=== PATIENT | female | born 1940 | race Caucasian/White ===

== ENCOUNTER 2016-02-15 22:56 | Inpatient (IN) | payer OTHER ==
[~2016-02-15] VITALS: Ht 162.6 cm; Wt 115.1 kg
[~2016-02-15 22:56] MED LIST: ALENDRONATE SOD70 MG PO; ALEVE220 MG PO; ASPIRIN81 M1 PO; BETHANECHOL CHL25 MG PO; CALCIUM 500 +1 EACH PO; CALCIUM 600 +1 EA15 PO; CALCIUM 600+D31 EACH PO; CIPRO500 MG PO; CITALOPRAM HBR40 M1 PO; CITALOPRAM HBR40 MG PO; DICYCLOMINE HCL20 MG PO; DILANTIN100 MG; DILANTIN100 MG PO; DITROPAN5 MG PO; ENDOCET 7.5-321 EACH PO; FLAGYL500 MG PO; FOSAMAX70 M1 PO; KEPPRA1000 MG PO; KEPPRA750 MG PO; KETOCONAZOLE60 GM TP; LAMICTAL25 MG PO; LAMOTRIGINE100 MG PO; LEVETIRACETAM750 MG PO; LITE COAT ASPI325 M1 PO; OMEPRAZOLE20 MG PO; OS-CAL 500+D T1 EAC1 PO; OXCARBAZEPINE300 MG PO; OYSTER CALCIUM500 MG PO; PERCOCET 5/31 TABLET PO; PHENYTOIN SODI100 M1 PO; PRILOSEC20 MG PO; RANITIDINE HCL150 MG PO; SIMVASTATIN40 M1 PO; SIMVASTATIN40 MG PO; SODIUM CHLORIDE1 G1 PO; STOOL SOFTENER100 MG PO; TOPIRAMATE25 MG PO; TRILEPTAL300 MG PO; ZOFRAN4 MG PO
[2016-02-15 23:56] LABS: HEMATOCRIT 38.6 % (36.0-46.0); MCH 29.9 PG (29.0-34.0); MCHC 33.4 G/DL (30.0-36.0); MCV 89.6 FL (83-99); MEAN PLAT.VOLUME 9.5 uM^3 (9.5-12.4); PLATELET COUNT 242 K/uL (156-360); RBC DIS.WIDTH-CV 13.3 % (11.8-14.6); RBC DIS.WIDTH-SD 42.9 % (39-53); RED BLOOD COUNT 4.31 M/uL (3.80-5.20); WHITE BLOOD COUNT 12.2 K/uL (4.1-10.2)
[2016-02-16 00:09] LABS: CHLORIDE 106 mEq/L (99-109); POTASSIUM 4.1 mEq/L (3.7-5.4); SODIUM 137 mEq/L (136-147)
[2016-02-16 00:11] LABS: GLUCOSE 121 mg/dL (70-99)
[2016-02-16 00:12] LABS: ANION GAP 10 MEQ/L (2-14)
[2016-02-16 00:13] LABS: TOTAL BILIRUBIN 0.5 mg/dL (0.0-1.0)
[2016-02-16 00:15] LABS: ALKALINE PHOSPHATASE 76 IU/L (3-129); GFR ESTIMATE (CALCULATED) 51 mL/min/
[2016-02-16 00:16] LABS: UREA NITROGEN (BUN) 21 mg/dL (9-23)
[2016-02-16 00:17] LABS: DIRECT BILIRUBIN 0.2 mg/dL (0.0-0.3)
[2016-02-16 00:18] LABS: LIPASE 20 U/L (1.0-51.0)
[2016-02-16 00:40] LABS: TROP-I INTERPRETATION NEGATIVE; TROPONIN-I < 0.01 ng/mL (0.0-0.30)
[2016-02-16] MEDS ORDERED: ATORVASTATIN CA20 MG PO (01:26)
[2016-02-16] MEDS ORDERED: LACTAID9000 UNIT PO (01:26)
[2016-02-16] MEDS ORDERED: TEMAZEPAM15 MG PO (01:27)
[2016-02-16] MEDS ORDERED: MIRALAX255 GM PO (01:27)
[2016-02-16] MEDS ORDERED: ALPRAZOLAM0.25 M2 PO (01:27)
[2016-02-16] MEDS ORDERED: ROBITUSSIN DM118 ML PO (01:27)
[2016-02-16 05:47] VITALS: BP 109/53
[2016-02-16 07:13] LABS: Estimated Average Glucose 137 mg/dL (70-123); HEMOGLOBIN A1c (GLYCOHEMOGLOB) 6.4 % HGB (Below 5.7)
[2016-02-16 07:16] LABS: HDL CHOLESTEROL 53 MG/DL (Desirable>=50); LDL CHOLESTEROL 52 mg/dL (Desirable<100); NON-HDL CHOLESTEROL 62 mg/dL (Desirable<160); TOTAL CHOLESTEROL 115 mg/dL (Desirable<200); TRIGLYCERIDES 48 MG/DL (Normal: <150)
[2016-02-16 08:53] VITALS: BP 95/50
[2016-02-16 13:02] VITALS: BP 92/56
[2016-02-16 14:00] LABS: TROP-I INTERPRETATION NEGATIVE; TROPONIN-I < 0.01 ng/mL (0.0-0.30)
[2016-02-16 17:24] VITALS: BP 85/48
[2016-02-16 20:38] VITALS: BP 116/55
[2016-02-17] VITALS: BP 129/66
[2016-02-17 04:30] VITALS: BP 129/67
[2016-02-17 08:30] VITALS: BP 136/65
[2016-02-17 12:45] VITALS: BP 129/65
[2016-02-17 16:56] VITALS: BP 114/61
[2016-02-17 21:27] VITALS: BP 105/57
[2016-02-18 07:12] LABS: HEMATOCRIT 35.5 % (36.0-46.0); MCH 30.3 PG (29.0-34.0); MCHC 33.2 G/DL (30.0-36.0); MCV 91.3 FL (83-99); MEAN PLAT.VOLUME 9.9 uM^3 (9.5-12.4); PLATELET COUNT 270 K/uL (156-360); RBC DIS.WIDTH-CV 13.4 % (11.8-14.6); RBC DIS.WIDTH-SD 44.4 % (39-53); RED BLOOD COUNT 3.89 M/uL (3.80-5.20)
[2016-02-18 07:15] LABS: WHITE BLOOD COUNT 8.5 K/uL (4.1-10.2)
[2016-02-18 08:00] VITALS: BP 122/65
[2016-02-18 12:55] VITALS: BP 100/51
[2016-02-18 20:48] VITALS: BP 102/54
[2016-02-19 00:36] VITALS: BP 115/59
[2016-02-19 04:38] VITALS: BP 119/58
[2016-02-19 08:37] VITALS: BP 129/67
[2016-02-19 13:00] VITALS: BP 112/57
[2016-02-19 20:21] VITALS: BP 102/53
[2016-02-20] VITALS (7 sets, daily range): BP systolic 97–123; BP diastolic 54–64
[2016-02-20] MEDS ORDERED: LEVETIRACETAM750 MG PO (07:41)
[2016-02-21 04:16] VITALS: BP 109/60
[2016-02-21 07:38] VITALS: BP 101/54
== END 2016-02-21 11:40 | DRG 69 ==
LOC: EME → EDBD 22:56 → EDOF 02-16 02:30 → 5WEST 02-16 04:16
PROVIDERS: Emergency Medicine; Family Medicine; Nurse Practitioner Adult Health
DX: G45.9 Transient cerebral ischemic attack, unspecified (principal); R29.810 Facial weakness; J96.11 Chronic respiratory failure with hypoxia; R07.89 Other chest pain; J98.11 Atelectasis; R55 Syncope and collapse; I95.9 Hypotension, unspecified; E86.1 Hypovolemia; I69.351 Hemiplegia and hemiparesis following cerebral infarction affecting right dominant side; G40.909 Epilepsy, unspecified, not intractable, without status epilepticus; G47.33 Obstructive sleep apnea (adult) (pediatric); R26.2 Difficulty in walking, not elsewhere classified; J44.9 Chronic obstructive pulmonary disease, unspecified; E78.5 Hyperlipidemia, unspecified; E03.9 Hypothyroidism, unspecified; I10 Essential (primary) hypertension; E66.9 Obesity, unspecified; R33.9 Retention of urine, unspecified; Z68.41 Body mass index [BMI] 40.0-44.9, adult; G93.89 Other specified disorders of brain; F32.9 Major depressive disorder, single episode, unspecified; K21.9 Gastro-esophageal reflux disease without esophagitis; Z99.3 Dependence on wheelchair; Z86.718 Personal history of other venous thrombosis and embolism; Z87.891 Personal history of nicotine dependence
CPT/HCPCS: 70450; 70551; 71010; 71275; 80048; 80061; 80076; 80164; 81003; 83036; 83690; 84484; 85027; 93005; 93306; 93880; 94640; 94640 76; 94799; 95819; 97530 GP; 99202; 99281; 99285; G8978 GP CM; G8979 GP CK; G8980 GP CM; G8987 GO CM; G8988 GO CK; G8989 GO CM; J7030; J7040

== ENCOUNTER 2016-03-28 12:37 | Inpatient (IN) | payer OTHER ==
[~2016-03-28] VITALS: Ht 162.6 cm; Wt 119.0 kg
[~2016-03-28 12:37] MED LIST changes: +ALPRAZOLAM0.25 M2 PO; +ATORVASTATIN CA20 MG PO; +LACTAID9000 UNIT PO; +MIRALAX255 GM PO; +ROBITUSSIN DM118 ML PO; +TEMAZEPAM15 MG PO
[2016-03-28 17:01] LABS: HEMATOCRIT 38.4 % (36.0-46.0); MCH 29.9 PG (29.0-34.0); MCHC 32.6 G/DL (30.0-36.0); MCV 91.9 FL (83-99); MEAN PLAT.VOLUME 9.3 uM^3 (9.5-12.4); PLATELET COUNT 305 K/uL (156-360); RBC DIS.WIDTH-CV 13.4 % (11.8-14.6); RED BLOOD COUNT 4.18 M/uL (3.80-5.20)
[2016-03-28 17:02] LABS: WHITE BLOOD COUNT 11.7 K/uL (4.1-10.2)
[2016-03-28 17:10] LABS: CHLORIDE 108 mEq/L (99-109); POTASSIUM 5.4 mEq/L (3.7-5.4); SODIUM 142 mEq/L (136-147)
[2016-03-28 17:11] LABS: GLUCOSE 78 mg/dL (70-99)
[2016-03-28 17:13] LABS: ANION GAP 9 MEQ/L (2-14)
[2016-03-28 17:15] LABS: GFR ESTIMATE (CALCULATED) 57 mL/min/
[2016-03-28 17:16] LABS: UREA NITROGEN (BUN) 19 mg/dL (9-23)
[2016-03-28] MEDS ORDERED: KEPPRA750 MG PO (18:40)
[2016-03-28] MEDS ORDERED: TRILEPTAL300 MG PO (18:41)
[2016-03-28] MEDS ORDERED: INCRUSE ELLI62.5 MCG IH (18:42)
[2016-03-28] MEDS ORDERED: ADVAIR HFA120 INHALA IH (18:42)
[2016-03-28] MEDS ORDERED: LOTRISONE15 GM TP (18:43)
[2016-03-28] MEDS ORDERED: LIPITOR20 MG PO (19:05)
[2016-03-28] MEDS ORDERED: XANAX0.25 MG PO (19:05)
[2016-03-28] MEDS ORDERED: KEPPRA500 MG PO (19:06)
[2016-03-29] VITALS (7 sets, daily range): BP systolic 90–110; BP diastolic 50–58
[2016-03-29 06:14] LABS: HEMATOCRIT 34.2 % (36.0-46.0); MCH 29.4 PG (29.0-34.0); MCHC 31.3 G/DL (30.0-36.0); MEAN PLAT.VOLUME 9.8 uM^3 (9.5-12.4); PLATELET COUNT 294 K/uL (156-360); RBC DIS.WIDTH-CV 13.8 % (11.8-14.6); RBC DIS.WIDTH-SD 47.4 % (39-53); RED BLOOD COUNT 3.64 M/uL (3.80-5.20); WHITE BLOOD COUNT 8.8 K/uL (4.1-10.2)
[2016-03-29 06:21] LABS: METH RESISTANT S AUREUS PCR NEGATIVE (NEGATIVE)
[2016-03-29 06:24] LABS: PROBE CHECK PASS; SPECIMEN PROCESSING CONTROL PASS
[2016-03-29 06:51] LABS: ALKALINE PHOSPHATASE 49 IU/L (3-129); ANION GAP 6 MEQ/L (2-14); CHLORIDE 108 MEQ/L (99-109); GFR ESTIMATE (CALCULATED) 51 mL/min/; GLUCOSE 95 mg/dL (70-99); POTASSIUM 4.8 MEQ/L (3.7-5.4); SAMPLE HEMOLYSIS CHECK 0; SAMPLE ICTERIC CHECK 0; SAMPLE LIPEMIA CHECK 0; SODIUM 141 MEQ/L (136-147); TOTAL BILIRUBIN 0.3 MG/DL (0.0-1.0); UREA NITROGEN (BUN) 22 mg/dL (9-23)
[2016-03-29 11:07] LABS: BILIRUBIN NEGATIVE; BLOOD NEGATIVE; COLOR YELLOW ((YELLOW)); GLUCOSE (STRIP) NEGATIVE; KETONES NEGATIVE; LEUKOCYTES NEGATIVE; NITRITE NEGATIVE; PROTEIN (STRIP) NEGATIVE; SPECIFIC GRAVITY 1.021 (1.000-1.030); UROBILINOGEN 0.2 MG/DL (0.2-1.0)
[2016-03-29 11:10] LABS: ADD MIUA? NO; UCUL ADDED? NO
[2016-03-30 03:46] VITALS: BP 123/57
[2016-03-30 07:56] VITALS: BP 100/68
[2016-03-30 15:26] VITALS: BP 125/69
[2016-03-30 19:47] VITALS: BP 134/62
[2016-03-30 23:40] VITALS: BP 109/53
[2016-03-31 03:31] VITALS: BP 109/53
[2016-03-31 07:40] VITALS: BP 112/56
[2016-03-31 07:40] LABS: EOSINOPHIL (%) 3.3 % (0-5); EOSINOPHIL COUNT 0.3 K/uL (0-0.3); HEMATOCRIT 30.9 % (36.0-46.0); IMMATURE GRANULOCYTE (%) 0.1 % (0.0-0.7); LYMPHOCYTE COUNT 1.1 K/uL (1.0-2.8); MCH 29.9 PG (29.0-34.0); MCHC 32.4 G/DL (30.0-36.0); MCV 92.2 FL (83-99); MEAN PLAT.VOLUME 9.5 uM^3 (9.5-12.4); MONOCYTE (%) 10.7 % (3-12); MONOCYTE COUNT 0.8 K/uL (0-0.8); NEUTROPHIL (%) 71.6 % (45-76); NEUTROPHIL COUNT 5.4 K/uL (1.8-6.4); PLATELET COUNT 219 K/uL (156-360); RBC DIS.WIDTH-CV 13.6 % (11.8-14.6); RBC DIS.WIDTH-SD 45.9 % (39-53); RED BLOOD COUNT 3.35 M/uL (3.80-5.20); WHITE BLOOD COUNT 7.6 K/uL (4.1-10.2)
[2016-03-31 08:01] LABS: ANION GAP 5 MEQ/L (2-14); CHLORIDE 103 MEQ/L (99-109); GFR ESTIMATE (CALCULATED) 51 mL/min/; GLUCOSE 84 mg/dL (70-99); POTASSIUM 4.5 MEQ/L (3.7-5.4); SAMPLE HEMOLYSIS CHECK 0; SAMPLE ICTERIC CHECK 0; SAMPLE LIPEMIA CHECK 0; SODIUM 138 MEQ/L (136-147); UREA NITROGEN (BUN) 19 mg/dL (9-23)
[2016-03-31 12:19] VITALS: BP 103/57
[2016-03-31 15:29] VITALS: BP 105/58
[2016-03-31 23:23] VITALS: BP 112/56
[2016-04-01 08:30] VITALS: BP 123/58
[2016-04-01 16:30] VITALS: BP 121/55
[2016-04-01 23:56] VITALS: BP 114/56
[2016-04-02 08:30] VITALS: BP 103/52
[2016-04-02 10:07] LABS: BASE EXCESS 4.6 mEq/L (-3 to +3); BICARBONATE 28.3 mEq/L (22-26); CARBOXY HGB 2.5 % (0-5); METHEMOGLOBIN 1.6 % (0-1.5); PCO2 38 mm Hg (35-45); PO2 55 mm Hg (80-100); pH 7.48 (7.35-7.45)
[2016-04-02 10:08] LABS: COMMENTS - BLOOD GASES A+C+; DEVICE NC; O2 FLOW 2 L/MIN; SITE LR; TOTAL RESP RATE 18 resp/min
[2016-04-02 10:57] LABS: HEMATOCRIT 30.8 % (36.0-46.0); MCH 28.7 PG (29.0-34.0); MCHC 31.8 G/DL (30.0-36.0); MCV 90.1 FL (83-99); MEAN PLAT.VOLUME 9.7 uM^3 (9.5-12.4); PLATELET COUNT 252 K/uL (156-360); RBC DIS.WIDTH-CV 13.9 % (11.8-14.6); RBC DIS.WIDTH-SD 45.6 % (39-53); RED BLOOD COUNT 3.42 M/uL (3.80-5.20); WHITE BLOOD COUNT 8.2 K/uL (4.1-10.2)
[2016-04-02 11:14] LABS: ANION GAP 8 MEQ/L (2-14); CHLORIDE 100 MEQ/L (99-109); GFR ESTIMATE (CALCULATED) > 59 mL/min/; GLUCOSE 103 mg/dL (70-99); POTASSIUM 4.6 MEQ/L (3.7-5.4); SAMPLE HEMOLYSIS CHECK 0; SAMPLE ICTERIC CHECK 0; SAMPLE LIPEMIA CHECK 0; SODIUM 135 MEQ/L (136-147); UREA NITROGEN (BUN) 18 mg/dL (9-23)
[2016-04-02 16:30] VITALS: BP 102/54
[2016-04-03 00:20] VITALS: BP 106/52
[2016-04-03 07:40] VITALS: BP 106/53
[2016-04-03] MEDS ORDERED: CLEOCIN150 MG PO (09:42)
[2016-04-03] MEDS ORDERED: TAMSULOSIN HCL0.4 MG PO (09:42)
[2016-04-03] MEDS ORDERED: TORADOL10 MG PO (09:43)
[2016-04-03] MEDS ORDERED: KEPPRA1000 MG PO (09:55)
[2016-04-03] MEDS ORDERED: PROBIOTIC1 EAC7 PO (09:57)
[2016-04-03] MEDS ORDERED: TRAMADOL HCL50 MG PO (09:59)
[2016-04-03] MEDS ORDERED: ENDOCET 5-3251 EACH PO (09:59)
== END 2016-04-03 12:55 | DRG 563 ==
LOC: EME → EXP 12:37 → EDBD 12:37 → EME 12:37 → EDOF 21:48 → 3EAST 23:08
PROVIDERS: Emergency Medicine; Hospitalist; Internal Medicine
DX: S82.851A Displaced trimalleolar fracture of right lower leg, initial encounter for closed fracture (principal); J96.11 Chronic respiratory failure with hypoxia; G93.89 Other specified disorders of brain; I69.351 Hemiplegia and hemiparesis following cerebral infarction affecting right dominant side; L03.115 Cellulitis of right lower limb; Z68.42 Body mass index [BMI] 45.0-49.9, adult; S82.831A Other fracture of upper and lower end of right fibula, initial encounter for closed fracture; G40.909 Epilepsy, unspecified, not intractable, without status epilepticus; R33.9 Retention of urine, unspecified; E66.9 Obesity, unspecified; I10 Essential (primary) hypertension; J98.11 Atelectasis; G47.30 Sleep apnea, unspecified; I69.398 Other sequelae of cerebral infarction; D72.829 Elevated white blood cell count, unspecified; J44.9 Chronic obstructive pulmonary disease, unspecified; F32.9 Major depressive disorder, single episode, unspecified; Z87.891 Personal history of nicotine dependence; W18.30XA Fall on same level, unspecified, initial encounter; Y92.018 Other place in single-family (private) house as the place of occurrence of the external cause
CPT/HCPCS: 36600; 70450; 71010; 72125; 73560; 73564; 73590; 73610; 80048; 80053; 81003; 82803; 85025; 85027; 86850; 86900; 86901; 87641; 94640; 94640 76; 94760; 94799; 97530 GP; 99202; 99281; 99285; G0378; J0690; J1170; J1650; J1885; J2405; J3010; J7030; J7050; J7120

== ENCOUNTER 2016-04-11 09:22 | Inpatient (IN) | payer OTHER ==
[~2016-04-11] VITALS: Ht 162.6 cm; Wt 112.3 kg
[~2016-04-11 09:22] MED LIST changes: +ADVAIR HFA120 INHALA IH; +CLEOCIN150 MG PO; +ENDOCET 5-3251 EACH PO; +INCRUSE ELLI62.5 MCG IH; +KEPPRA500 MG PO; +LIPITOR20 MG PO; +LOTRISONE15 GM TP; +PROBIOTIC1 EAC7 PO; +TAMSULOSIN HCL0.4 MG PO; +TORADOL10 MG PO; +TRAMADOL HCL50 MG PO; +XANAX0.25 MG PO
[2016-04-11 10:46] LABS: D-DIMER ELISA > 4.00 mg/L FEU (< 0.57)
[2016-04-11 11:53] LABS: HEMATOCRIT 35.4 % (36.0-46.0); MCH 29.7 PG (29.0-34.0); MCHC 34.5 G/DL (30.0-36.0); MCV 86.1 FL (83-99); MEAN PLAT.VOLUME 8.8 uM^3 (9.5-12.4); RBC DIS.WIDTH-CV 12.9 % (11.8-14.6); RBC DIS.WIDTH-SD 39.6 % (39-53); WHITE BLOOD COUNT 10.1 K/uL (4.1-10.2)
[2016-04-11 12:00] LABS: CREATININE 0.8 mg/dL (0.6-1.3); POTASSIUM 4.6 mEq/L (3.7-5.4)
[2016-04-11 12:12] LABS: TROP-I INTERPRETATION NEGATIVE; TROPONIN-I < 0.01 ng/mL (0.0-0.30)
[2016-04-11 12:34] LABS: ANION GAP 8 MEQ/L (2-14); CHLORIDE 91 MEQ/L (99-109); GFR ESTIMATE (CALCULATED) > 59 mL/min/; GLUCOSE 88 mg/dL (70-99); POTASSIUM 4.8 MEQ/L (3.7-5.4); SAMPLE HEMOLYSIS CHECK 0; SAMPLE ICTERIC CHECK 0; SAMPLE LIPEMIA CHECK 0; SODIUM 122 MEQ/L (136-147); UREA NITROGEN (BUN) 14 mg/dL (9-23)
[2016-04-11 13:07] LABS: PLATELET COUNT 475 K/uL (156-360); RED BLOOD COUNT 4.11 M/uL (3.80-5.20)
[2016-04-11] MEDS ORDERED: NYSTATIN60 GM TP (15:56)
[2016-04-11] MEDS ORDERED: OMEPRAZOLE20 M2 PO (15:57)
[2016-04-11] MEDS ORDERED: PROBIOTIC FORM1 EAC1 PO (16:01)
[2016-04-11] MEDS ORDERED: [UNRECOGNIZED DRUG - REMARK] (16:02)
[2016-04-11] MEDS ORDERED: DULCOLAX10 MG PR (16:04)
[2016-04-11] MEDS ORDERED: MILK OF MAGN PO (16:05)
[2016-04-11] MEDS ORDERED: MIRALAX255 GM PO (16:05)
[2016-04-11 19:42] VITALS: BP 124/65
[2016-04-11 19:59] VITALS: BP 124/64
[2016-04-11 23:57] VITALS: BP 120/62
[2016-04-12 03:51] VITALS: BP 143/72
[2016-04-12 07:20] LABS: HEMATOCRIT 32.1 % (36.0-46.0); MCH 28.3 PG (29.0-34.0); MCV 85.8 FL (83-99); MEAN PLAT.VOLUME 8.9 uM^3 (9.5-12.4); PLATELET COUNT 471 K/uL (156-360); RBC DIS.WIDTH-CV 13.5 % (11.8-14.6); RBC DIS.WIDTH-SD 41.9 % (39-53); RED BLOOD COUNT 3.74 M/uL (3.80-5.20); WHITE BLOOD COUNT 7.3 K/uL (4.1-10.2)
[2016-04-12 07:28] VITALS: BP 144/67
[2016-04-12 07:46] LABS: ANION GAP 9 MEQ/L (2-14); CHLORIDE 95 MEQ/L (99-109); GFR ESTIMATE (CALCULATED) > 59 mL/min/; GLUCOSE 81 mg/dL (70-99); POTASSIUM 4.4 MEQ/L (3.7-5.4); SAMPLE HEMOLYSIS CHECK 0; SAMPLE ICTERIC CHECK 0; SAMPLE LIPEMIA CHECK 0; SODIUM 127 MEQ/L (136-147); UREA NITROGEN (BUN) 12 mg/dL (9-23)
[2016-04-12 11:03] VITALS: BP 120/59
[2016-04-12 15:00] VITALS: BP 118/63
[2016-04-12 17:42] LABS: ANION GAP 7 MEQ/L (2-14); CHLORIDE 93 MEQ/L (99-109); GFR ESTIMATE (CALCULATED) > 59 mL/min/; GLUCOSE 88 mg/dL (70-99); POTASSIUM 4.5 MEQ/L (3.7-5.4); SAMPLE HEMOLYSIS CHECK 0; SAMPLE ICTERIC CHECK 0; SAMPLE LIPEMIA CHECK 0; SODIUM 124 MEQ/L (136-147); UREA NITROGEN (BUN) 13 mg/dL (9-23)
[2016-04-12 19:17] VITALS: BP 108/57
[2016-04-13 00:02] VITALS: BP 135/63
[2016-04-13 03:44] VITALS: BP 126/55
[2016-04-13 07:30] VITALS: BP 143/69
[2016-04-13 09:28] LABS: HEMATOCRIT 34.4 % (36.0-46.0); MCH 28.5 PG (29.0-34.0); MCHC 32.6 G/DL (30.0-36.0); MCV 87.5 FL (83-99); MEAN PLAT.VOLUME 8.8 uM^3 (9.5-12.4); PLATELET COUNT 481 K/uL (156-360); RBC DIS.WIDTH-CV 13.5 % (11.8-14.6); RBC DIS.WIDTH-SD 43.1 % (39-53); RED BLOOD COUNT 3.93 M/uL (3.80-5.20); WHITE BLOOD COUNT 7.1 K/uL (4.1-10.2)
[2016-04-13 09:56] LABS: ANION GAP 5 MEQ/L (2-14); CHLORIDE 94 MEQ/L (99-109); GFR ESTIMATE (CALCULATED) > 59 mL/min/; GLUCOSE 132 mg/dL (70-99); POTASSIUM 4.2 MEQ/L (3.7-5.4); SAMPLE HEMOLYSIS CHECK 0; SAMPLE ICTERIC CHECK 0; SAMPLE LIPEMIA CHECK 0; SODIUM 124 MEQ/L (136-147); UREA NITROGEN (BUN) 13 mg/dL (9-23)
[2016-04-13 11:05] VITALS: BP 128/71
[2016-04-13 15:20] VITALS: BP 115/52
[2016-04-13 19:35] VITALS: BP 109/61
[2016-04-13 20:27] LABS: ANION GAP 8 MEQ/L (2-14); CHLORIDE 95 MEQ/L (99-109); GFR ESTIMATE (CALCULATED) > 59 mL/min/; POTASSIUM 4.5 MEQ/L (3.7-5.4); SAMPLE HEMOLYSIS CHECK 0; SAMPLE ICTERIC CHECK 0; SAMPLE LIPEMIA CHECK 0; SODIUM 127 MEQ/L (136-147); UREA NITROGEN (BUN) 14 mg/dL (9-23)
[2016-04-13 20:32] LABS: GLUCOSE 93 mg/dL (70-99)
[2016-04-14] VITALS: BP 118/58
[2016-04-14 04:00] VITALS: BP 155/77
[2016-04-14 07:33] LABS: ANION GAP 6 MEQ/L (2-14); CHLORIDE 98 MEQ/L (99-109); GFR ESTIMATE (CALCULATED) > 59 mL/min/; GLUCOSE 86 mg/dL (70-99); POTASSIUM 4.5 MEQ/L (3.7-5.4); SAMPLE HEMOLYSIS CHECK 0; SAMPLE ICTERIC CHECK 0; SAMPLE LIPEMIA CHECK 0; SODIUM 129 MEQ/L (136-147); UREA NITROGEN (BUN) 12 mg/dL (9-23)
[2016-04-14 07:51] VITALS: BP 113/62
[2016-04-14 10:18] LABS: ADD MIUA? YES; BILIRUBIN NEGATIVE; BLOOD MODERATE; COLOR AMBER ((YELLOW)); GLUCOSE (STRIP) NEGATIVE; KETONES NEGATIVE; LEUKOCYTES LARGE; NITRITE NEGATIVE; PROTEIN (STRIP) 30; SPECIFIC GRAVITY 1.005 (1.000-1.030); UROBILINOGEN 0.2 MG/DL (0.2-1.0)
[2016-04-14 11:00] LABS: BACTERIA 3+ /HPF; BUDDING YEAST 4+; EPITHELIAL CELLS 2+ /HPF; MUCUS NONE SEEN /LPF; RED BLOOD CELLS TNTC /HPF (0-5); UCUL ADDED? YES; WHITE BLOOD CELLS TNTC /HPF (0-5); WHITE BLOOD CELLS CLUMP MANY /HPF (0-5)
[2016-04-14 17:01] VITALS: BP 126/63
[2016-04-14 23:38] VITALS: BP 145/62
[2016-04-15 06:48] LABS: ANION GAP 7 MEQ/L (2-14); CHLORIDE 98 MEQ/L (99-109); GFR ESTIMATE (CALCULATED) > 59 mL/min/; GLUCOSE 83 mg/dL (70-99); POTASSIUM 4.5 MEQ/L (3.7-5.4); SAMPLE HEMOLYSIS CHECK 0; SAMPLE ICTERIC CHECK 0; SAMPLE LIPEMIA CHECK 0; SODIUM 131 MEQ/L (136-147); UREA NITROGEN (BUN) 15 mg/dL (9-23)
[2016-04-15 07:39] VITALS: BP 130/62
[2016-04-15] MEDS ORDERED: TAMSULOSIN HCL0.4 MG PO (13:10)
[2016-04-15] MEDS ORDERED: LEVETIRACETAM500 MG PO (13:11)
[2016-04-15] MEDS ORDERED: SPIRIVA RESPIMAT4 GM IH (13:11)
[2016-04-15] MEDS ORDERED: LEVETIRACETAM250 MG PO (13:12)
[2016-04-15] MEDS ORDERED: ADVAIR HFA120 INHALA IH (13:12)
[2016-04-15] MEDS ORDERED: SODIUM CHLORIDE1 G1 PO (13:12)
== END 2016-04-15 15:37 | DRG 641 ==
LOC: EME → EDBD 09:22 → EDOF 16:20 → 5SOUTH 16:20
PROVIDERS: Emergency Medicine; Hospitalist; Internal Medicine; Internal Medicine Nephrology; Physician Assistant
DX: E87.1 Hypo-osmolality and hyponatremia (principal); F05 Delirium due to known physiological condition; J98.11 Atelectasis; J90 Pleural effusion, not elsewhere classified; J96.11 Chronic respiratory failure with hypoxia; Z68.41 Body mass index [BMI] 40.0-44.9, adult; I69.351 Hemiplegia and hemiparesis following cerebral infarction affecting right dominant side; F33.9 Major depressive disorder, recurrent, unspecified; S82.841D Displaced bimalleolar fracture of right lower leg, subsequent encounter for closed fracture with routine healing; G40.909 Epilepsy, unspecified, not intractable, without status epilepticus; G47.30 Sleep apnea, unspecified; E78.5 Hyperlipidemia, unspecified; J44.9 Chronic obstructive pulmonary disease, unspecified; I25.10 Atherosclerotic heart disease of native coronary artery without angina pectoris; E66.01 Morbid (severe) obesity due to excess calories; E89.0 Postprocedural hypothyroidism; R32 Unspecified urinary incontinence; Z87.891 Personal history of nicotine dependence; Z88.5 Allergy status to narcotic agent; Z99.89 Dependence on other enabling machines and devices; Z88.1 Allergy status to other antibiotic agents
CPT/HCPCS: 71275; 73610; 80047; 80048; 80069; 81003; 83605; 83930; 83935; 84300; 84443; 84484; 85027; 85379; 87077; 87086; 87186; 93005; 94640; 94640 76; 94799; 99281; 99285; J1644; J1953; J2405; J3010; J7030; J7050

== ENCOUNTER 2016-06-26 17:12 | Emergency (ER) | payer OTHER ==
[~2016-06-26] VITALS: Ht 162.6 cm; Wt 110.5 kg
[~2016-06-26 17:12] MED LIST changes: +DULCOLAX10 MG PR; +LEVETIRACETAM250 MG PO; +LEVETIRACETAM500 MG PO; +MILK OF MAGN PO; +NYSTATIN60 GM TP; +OMEPRAZOLE20 M2 PO; +PROBIOTIC FORM1 EAC1 PO; +SPIRIVA RESPIMAT4 GM IH; +[UNRECOGNIZED DRUG - REMARK]
[2016-06-26 20:02] VITALS: BP 136/78
== END 2016-06-26 20:19 ==
LOC: EME 17:12
DX: F41.9 Anxiety disorder, unspecified (principal); F43.20 Adjustment disorder, unspecified; I69.351 Hemiplegia and hemiparesis following cerebral infarction affecting right dominant side; J44.9 Chronic obstructive pulmonary disease, unspecified; I10 Essential (primary) hypertension; Z88.1 Allergy status to other antibiotic agents; Z88.8 Allergy status to other drugs, medicaments and biological substances
CPT/HCPCS: 99281; 99282

== ENCOUNTER → 2016-07-17 | Outpatient (CLI) | payer OTHER | LOC: NUC 10:06 | DX: R07.9 Chest pain, unspecified (principal) | CPT/HCPCS: 78452; 93017; A9500; J2785 ==

== ENCOUNTER 2016-08-12 22:44 | Inpatient (IN) | payer OTHER ==
[~2016-08-12] VITALS: Ht 162.6 cm; Wt 105.0 kg
[2016-08-12 23:51] LABS: BASOPHIL COUNT 0.1 K/uL (0-0.1); EOSINOPHIL (%) 1.3 % (0-5); EOSINOPHIL COUNT 0.1 K/uL (0-0.3); HEMATOCRIT 35.4 % (36.0-46.0); IMMATURE GRANULOCYTE (%) 0.5 % (0.0-0.7); INSTRUMENT ABS NEUTROPHIL CT 6.5 K/uL; LYMPHOCYTE COUNT 1.1 K/uL (1.0-2.8); MCH 30.2 PG (29.0-34.0); MCHC 33.9 G/DL (30.0-36.0); MCV 88.9 FL (83-99); MEAN PLAT.VOLUME 8.5 uM^3 (9.5-12.4); MONOCYTE (%) 7.7 % (3-12); MONOCYTE COUNT 0.7 K/uL (0-0.8); NEUTROPHIL COUNT 6.5 K/uL (1.8-6.4); PLATELET COUNT 288 K/uL (156-360); RBC DIS.WIDTH-CV 12.3 % (11.8-14.6); RBC DIS.WIDTH-SD 40.2 % (39-53); RED BLOOD COUNT 3.98 M/uL (3.80-5.20); WHITE BLOOD COUNT 8.4 K/uL (4.1-10.2)
[2016-08-13 00:03] LABS: CHLORIDE 99 mEq/L (99-109); POTASSIUM 4.4 mEq/L (3.7-5.4); SODIUM 130 mEq/L (136-147)
[2016-08-13 00:06] LABS: ANION GAP 8 MEQ/L (2-14); INTER. NORMALIZED RATIO 0.9; PTT 26.4 (25-32)
[2016-08-13 00:08] LABS: GFR ESTIMATE (CALCULATED) > 59 mL/min/
[2016-08-13 00:09] LABS: UREA NITROGEN (BUN) 15 mg/dL (9-23)
[2016-08-13 00:11] LABS: PROTHROMBIN TIME 9.2 (9.2-11.2)
[2016-08-13 00:12] LABS: GLUCOSE 101 mg/dL (70-99); TROP-I INTERPRETATION NEGATIVE; TROPONIN-I < 0.01 ng/mL (0.0-0.30)
[2016-08-13 00:12] LABS: ADD MIUA? YES; BILIRUBIN NEGATIVE; BLOOD NEGATIVE; COLOR YELLOW ((YELLOW)); GLUCOSE (STRIP) NEGATIVE; KETONES NEGATIVE; LEUKOCYTES MODERATE; NITRITE POSITIVE; PROTEIN (STRIP) NEGATIVE; SPECIFIC GRAVITY 1.016 (1.000-1.030); UROBILINOGEN 0.2 MG/DL (0.2-1.0)
[2016-08-13 00:18] LABS: BACTERIA 1+ /HPF; EPITHELIAL CELLS 1+ /HPF; MUCUS 1+ /LPF; RED BLOOD CELLS 0-5 /HPF (0-5); UCUL ADDED? NO; WHITE BLOOD CELLS 30-40 /HPF (0-5)
[2016-08-13] MEDS ORDERED: ASPIRIN325 MG PO (01:30)
[2016-08-13] MEDS ORDERED: INCRUSE ELLI62.5 MCG IH (01:31)
[2016-08-13] MEDS ORDERED: PAROXETINE HCL10 MG PO (01:31)
[2016-08-13] MEDS ORDERED: SENNA PLUS TAB1 EACH PO (01:34)
[2016-08-13] MEDS ORDERED: TAMSULOSIN HCL0.4 MG PO (01:35)
[2016-08-13] MEDS ORDERED: TRAZODONE HCL50 MG PO (01:35)
[2016-08-13] MEDS ORDERED: TRILEPTAL150 MG PO (01:39)
[2016-08-13] MEDS ORDERED: OXCARBAZEPINE600 MG PO (01:45)
[2016-08-13] MEDS ORDERED: SODIUM CHLORIDE1 G1 PO (01:48)
[2016-08-13] MEDS ORDERED: VIMPAT100 MG PO (01:49)
[2016-08-13] MEDS ORDERED: CALCIUM 600+D1 EACH PO (01:50)
[2016-08-13] MEDS ORDERED: MILK OF MAGN PO (01:51)
[2016-08-13] MEDS ORDERED: ACETAMINOPHEN325 M1 PO (01:51)
[2016-08-13] MEDS ORDERED: DIAZEPAM2 MG PO (01:54)
[2016-08-13 04:17] VITALS: BP 148/65
[2016-08-13 04:38] LABS: HDL CHOLESTEROL 73 MG/DL (Desirable>=50); LDL CHOLESTEROL 107 mg/dL (Desirable<100); NON-HDL CHOLESTEROL 124 mg/dL (Desirable<160); TOTAL CHOLESTEROL 197 mg/dL (Desirable<200); TRIGLYCERIDES 87 MG/DL (Normal: <150)
[2016-08-13 06:54] LABS: Estimated Average Glucose 126 mg/dL (70-123)
[2016-08-13 07:22] LABS: ANION GAP 7 MEQ/L (2-14); CHLORIDE 98 MEQ/L (99-109); GFR ESTIMATE (CALCULATED) > 59 mL/min/; GLUCOSE 93 mg/dL (70-99); POTASSIUM 4.1 MEQ/L (3.7-5.4); SAMPLE HEMOLYSIS CHECK 0; SAMPLE ICTERIC CHECK 0; SAMPLE LIPEMIA CHECK 0; SODIUM 131 MEQ/L (136-147); UREA NITROGEN (BUN) 13 mg/dL (9-23)
[2016-08-13 08:42] VITALS: BP 135/68
[2016-08-13 12:34] VITALS: BP 143/69
[2016-08-13 16:25] VITALS: BP 140/74
[2016-08-13 19:38] VITALS: BP 111/53
[2016-08-13 21:06] LABS: POINT-OF-CARE METER ID UU13113717
[2016-08-13 23:32] VITALS: BP 121/57
[2016-08-14 03:23] VITALS: BP 119/57
[2016-08-14 06:12] LABS: HEMATOCRIT 36.9 % (36.0-46.0); MCH 31.2 PG (29.0-34.0); MCHC 34.7 G/DL (30.0-36.0); MEAN PLAT.VOLUME 8.9 uM^3 (9.5-12.4); PLATELET COUNT 280 K/uL (156-360); RBC DIS.WIDTH-CV 12.4 % (11.8-14.6); RBC DIS.WIDTH-SD 40.4 % (39-53)
[2016-08-14 08:23] VITALS: BP 150/77
[2016-08-14 11:32] VITALS: BP 147/71
[2016-08-14 18:09] VITALS: BP 158/78
[2016-08-14 19:33] VITALS: BP 158/72
[2016-08-14 23:33] VITALS: BP 142/63
[2016-08-15] VITALS (7 sets, daily range): BP systolic 79–146; BP diastolic 49–72
[2016-08-15 06:40] LABS: ANION GAP 9 MEQ/L (2-14); CHLORIDE 92 MEQ/L (99-109); GFR ESTIMATE (CALCULATED) > 59 mL/min/; GLUCOSE 85 mg/dL (70-99); POTASSIUM 4.4 MEQ/L (3.7-5.4); SAMPLE HEMOLYSIS CHECK 0; SAMPLE ICTERIC CHECK 0; SAMPLE LIPEMIA CHECK 0; SODIUM 126 MEQ/L (136-147); UREA NITROGEN (BUN) 10 mg/dL (9-23)
[2016-08-15 07:47] LABS: POINT-OF-CARE METER ID UU13113717
[2016-08-15 18:03] LABS: POINT-OF-CARE METER ID UU13113717
[2016-08-15 18:35] LABS: POINT-OF-CARE METER ID UU13113717
[2016-08-15 21:58] LABS: ANION GAP 8 MEQ/L (2-14); CHLORIDE 94 MEQ/L (99-109); GFR ESTIMATE (CALCULATED) > 59 mL/min/; SAMPLE HEMOLYSIS CHECK 0; SAMPLE ICTERIC CHECK 0; SAMPLE LIPEMIA CHECK 0; SODIUM 126 MEQ/L (136-147); UREA NITROGEN (BUN) 12 mg/dL (9-23)
[2016-08-15 22:01] LABS: GLUCOSE 116 mg/dL (70-99)
[2016-08-16 04:31] VITALS: BP 124/60
[2016-08-16 06:29] LABS: ANION GAP 8 MEQ/L (2-14); CHLORIDE 97 MEQ/L (99-109); GFR ESTIMATE (CALCULATED) > 59 mL/min/; POTASSIUM 4.3 MEQ/L (3.7-5.4); SAMPLE HEMOLYSIS CHECK 0; SAMPLE ICTERIC CHECK 0; SAMPLE LIPEMIA CHECK 0; SODIUM 130 MEQ/L (136-147); UREA NITROGEN (BUN) 13 mg/dL (9-23)
[2016-08-16 06:34] LABS: GLUCOSE 86 mg/dL (70-99)
[2016-08-16 07:25] VITALS: BP 123/58
[2016-08-16 08:18] LABS: POINT-OF-CARE METER ID UU13113781; POINT-OF-CARE USER ID ENVKC36
[2016-08-16 11:52] LABS: POINT-OF-CARE METER ID UU13113781; POINT-OF-CARE USER ID ENVKC36
[2016-08-16 12:00] VITALS: BP 120/82; BP 125/60
[2016-08-16 16:38] LABS: POINT-OF-CARE METER ID UU13113698; POINT-OF-CARE USER ID ENVKC36
[2016-08-16 19:20] VITALS: BP 133/60
[2016-08-16 21:43] LABS: POINT-OF-CARE METER ID UU14174216
[2016-08-17 00:10] VITALS: BP 113/54
[2016-08-17 04:00] VITALS: BP 119/56
[2016-08-17 04:35] LABS: HEMATOCRIT 32.7 % (36.0-46.0); MCH 30.1 PG (29.0-34.0); MCHC 33.6 G/DL (30.0-36.0); MCV 89.3 FL (83-99); MEAN PLAT.VOLUME 8.7 uM^3 (9.5-12.4); PLATELET COUNT 246 K/uL (156-360); RBC DIS.WIDTH-CV 12.2 % (11.8-14.6); RBC DIS.WIDTH-SD 39.7 % (39-53); RED BLOOD COUNT 3.66 M/uL (3.80-5.20); WHITE BLOOD COUNT 6.7 K/uL (4.1-10.2)
[2016-08-17 04:44] LABS: CHLORIDE 101 mEq/L (99-109); POTASSIUM 4.2 mEq/L (3.7-5.4); SODIUM 132 mEq/L (136-147)
[2016-08-17 04:45] LABS: MAGNESIUM 1.6 mg/dL (1.3-2.7)
[2016-08-17 04:46] LABS: GLUCOSE 106 mg/dL (70-99)
[2016-08-17 04:47] LABS: ANION GAP 6 MEQ/L (2-14)
[2016-08-17 04:50] LABS: GFR ESTIMATE (CALCULATED) > 59 mL/min/
[2016-08-17 04:51] LABS: UREA NITROGEN (BUN) 12 mg/dL (9-23)
[2016-08-17 06:48] LABS: POINT-OF-CARE METER ID UU13113698
[2016-08-17 07:18] VITALS: BP 123/57
[2016-08-17 07:51] LABS: POINT-OF-CARE METER ID UU13113698; POINT-OF-CARE USER ID ENVKC36
[2016-08-17 12:00] LABS: POINT-OF-CARE METER ID UU13113781; POINT-OF-CARE USER ID ENVKC36
[2016-08-17 12:08] VITALS: BP 161/71
[2016-08-17 15:35] VITALS: BP 144/69
[2016-08-17 16:48] LABS: POINT-OF-CARE METER ID UU13113781; POINT-OF-CARE USER ID ENVKC36
[2016-08-17 19:15] VITALS: BP 122/57
[2016-08-17 21:02] LABS: POINT-OF-CARE METER ID UU13113781
[2016-08-18] VITALS (9 sets, daily range): BP systolic 118–150; BP diastolic 58–98
[2016-08-18 06:55] LABS: ANION GAP 5 MEQ/L (2-14); CHLORIDE 98 MEQ/L (99-109); GFR ESTIMATE (CALCULATED) > 59 mL/min/; GLUCOSE 92 mg/dL (70-99); POTASSIUM 4.4 MEQ/L (3.7-5.4); SAMPLE HEMOLYSIS CHECK 0; SAMPLE ICTERIC CHECK 0; SAMPLE LIPEMIA CHECK 0; SODIUM 131 MEQ/L (136-147); UREA NITROGEN (BUN) 13 mg/dL (9-23)
[2016-08-18 08:07] LABS: POINT-OF-CARE METER ID UU13113781; POINT-OF-CARE USER ID NUTSLF44
[2016-08-18 12:33] LABS: POINT-OF-CARE METER ID UU13113698
[2016-08-18 16:34] LABS: POINT-OF-CARE METER ID UU13113698; POINT-OF-CARE USER ID NUTSLF44
[2016-08-19 06:15] LABS: BASOPHIL COUNT 0.1 K/uL (0-0.1); EOSINOPHIL (%) 2.3 % (0-5); EOSINOPHIL COUNT 0.2 K/uL (0-0.3); HEMATOCRIT 35.3 % (36.0-46.0); IMMATURE GRANULOCYTE (%) 0.3 % (0.0-0.7); INSTRUMENT ABS NEUTROPHIL CT 4.4 K/uL; LYMPHOCYTE COUNT 1.2 K/uL (1.0-2.8); MCH 30.3 PG (29.0-34.0); MCHC 33.7 G/DL (30.0-36.0); MCV 89.8 FL (83-99); MONOCYTE (%) 11.2 % (3-12); MONOCYTE COUNT 0.7 K/uL (0-0.8); NEUTROPHIL (%) 66.9 % (45-76); NEUTROPHIL COUNT 4.4 K/uL (1.8-6.4); PLATELET COUNT 286 K/uL (156-360); RBC DIS.WIDTH-CV 12.3 % (11.8-14.6); RBC DIS.WIDTH-SD 40.4 % (39-53); RED BLOOD COUNT 3.93 M/uL (3.80-5.20); WHITE BLOOD COUNT 6.6 K/uL (4.1-10.2)
[2016-08-19 06:34] LABS: ALKALINE PHOSPHATASE 61 IU/L (3-129); CHLORIDE 95 MEQ/L (99-109); GFR ESTIMATE (CALCULATED) > 59 mL/min/; GLUCOSE 87 mg/dL (70-99); POTASSIUM 4.5 MEQ/L (3.7-5.4); SAMPLE HEMOLYSIS CHECK 0; SAMPLE ICTERIC CHECK 0; SAMPLE LIPEMIA CHECK 0; SODIUM 130 MEQ/L (136-147); TOTAL BILIRUBIN 0.3 MG/DL (0.0-1.0); UREA NITROGEN (BUN) 14 mg/dL (9-23)
[2016-08-19 06:35] LABS: ANION GAP 8 MEQ/L (2-14)
[2016-08-19 08:14] VITALS: BP 156/71
[2016-08-19 11:38] VITALS: BP 144/67
[2016-08-19 15:20] VITALS: BP 163/70
[2016-08-19 19:19] VITALS: BP 135/63
[2016-08-19 23:26] VITALS: BP 136/67
[2016-08-20] VITALS (16 sets, daily range): BP systolic 85–162; BP diastolic 56–79
[2016-08-20 07:05] LABS: ANION GAP 8 MEQ/L (2-14); CHLORIDE 88 MEQ/L (99-109); GFR ESTIMATE (CALCULATED) > 59 mL/min/; GLUCOSE 90 mg/dL (70-99); POTASSIUM 4.6 MEQ/L (3.7-5.4); SAMPLE HEMOLYSIS CHECK 0; SAMPLE ICTERIC CHECK 0; SAMPLE LIPEMIA CHECK 0; SODIUM 127 MEQ/L (136-147); UREA NITROGEN (BUN) 15 mg/dL (9-23)
[2016-08-20 10:03] LABS: HEMATOCRIT 36.6 % (36.0-46.0); MCH 30.2 PG (29.0-34.0); MCHC 33.9 G/DL (30.0-36.0); MCV 89.1 FL (83-99); MEAN PLAT.VOLUME 8.6 uM^3 (9.5-12.4); PLATELET COUNT 283 K/uL (156-360); RBC DIS.WIDTH-CV 12.6 % (11.8-14.6); RBC DIS.WIDTH-SD 40.7 % (39-53); RED BLOOD COUNT 4.11 M/uL (3.80-5.20); WHITE BLOOD COUNT 7.4 K/uL (4.1-10.2)
[2016-08-20 10:12] LABS: POTASSIUM 5.2 mEq/L (3.7-5.4); SODIUM 126 mEq/L (136-147)
[2016-08-20 10:13] LABS: CHLORIDE 90 mEq/L (99-109)
[2016-08-20 10:14] LABS: GLUCOSE 127 mg/dL (70-99)
[2016-08-20 10:16] LABS: ANION GAP 8 MEQ/L (2-14)
[2016-08-20 10:18] LABS: GFR ESTIMATE (CALCULATED) > 59 mL/min/
[2016-08-20 10:19] LABS: UREA NITROGEN (BUN) 16 mg/dL (9-23)
[2016-08-20 10:24] LABS: TROP-I INTERPRETATION NEGATIVE; TROPONIN-I < 0.01 ng/mL (0.0-0.30)
[2016-08-20 11:45] LABS: METH RESISTANT S AUREUS PCR NEGATIVE (NEGATIVE); PROBE CHECK PASS; SPECIMEN PROCESSING CONTROL PASS
[2016-08-20 13:18] LABS: ADD MIUA? YES; BILIRUBIN NEGATIVE; BLOOD SMALL; COLOR STRAW ((YELLOW)); GLUCOSE (STRIP) NEGATIVE; KETONES NEGATIVE; LEUKOCYTES NEGATIVE; NITRITE NEGATIVE; PROTEIN (STRIP) NEGATIVE; SPECIFIC GRAVITY 1.005 (1.000-1.030); UROBILINOGEN 0.2 MG/DL (0.2-1.0)
[2016-08-20 13:28] LABS: BACTERIA NONE SEEN /HPF; EPITHELIAL CELLS RARE /HPF; HYALINE CASTS 0-5 /LPF; MUCUS TRACE /LPF; RED BLOOD CELLS 0-5 /HPF (0-5); UCUL ADDED? NO; WHITE BLOOD CELLS 0-5 /HPF (0-5)
[2016-08-20 15:59] LABS: TROP-I INTERPRETATION NEGATIVE; TROPONIN-I 0.02 ng/mL (0.0-0.30)
[2016-08-20 16:05] LABS: ANION GAP 10 MEQ/L (2-14); CHLORIDE 88 MEQ/L (99-109); GFR ESTIMATE (CALCULATED) 57 mL/min/; GLUCOSE 182 mg/dL (70-99); HDL CHOLESTEROL 102 MG/DL (Desirable>=50); LDL CHOLESTEROL 88 mg/dL (Desirable<100); NON-HDL CHOLESTEROL 98 mg/dL (Desirable<160); POTASSIUM 4.4 MEQ/L (3.7-5.4); SAMPLE HEMOLYSIS CHECK 0; SAMPLE ICTERIC CHECK 0; SAMPLE LIPEMIA CHECK 0; SODIUM 127 MEQ/L (136-147); TOTAL CHOLESTEROL 200 mg/dL (Desirable<200); TRIGLYCERIDES 51 MG/DL (Normal: <150); UREA NITROGEN (BUN) 16 mg/dL (9-23)
[2016-08-20 16:07] LABS: Estimated Average Glucose 123 mg/dL (70-123); HEMOGLOBIN A1c (GLYCOHEMOGLOB) 5.9 % HGB (Below 5.7)
[2016-08-20 17:49] LABS: POINT-OF-CARE METER ID UU13113748; POINT-OF-CARE USER ID 606021424
[2016-08-20 23:51] LABS: POINT-OF-CARE USER ID PHATLC
[2016-08-21] VITALS (24 sets, daily range): BP systolic 55–187; BP diastolic 33–76
[2016-08-21 06:43] LABS: POINT-OF-CARE METER ID UU13113803; POINT-OF-CARE USER ID PHATLC
[2016-08-21 08:20] LABS: EOSINOPHIL (%) 0 % (0-5); HEMATOCRIT 40.4 % (36.0-46.0); IMMATURE GRANULOCYTE (%) 0.4 % (0.0-0.7); IMMATURE GRANULOCYTE COUNT 0.1 K/uL; INSTRUMENT ABS NEUTROPHIL CT 10.2 K/uL; LYMPHOCYTE COUNT 0.6 K/uL (1.0-2.8); MCH 30.2 PG (29.0-34.0); MCHC 33.9 G/DL (30.0-36.0); MEAN PLAT.VOLUME 8.6 uM^3 (9.5-12.4); MONOCYTE (%) 12.2 % (3-12); MONOCYTE COUNT 1.5 K/uL (0-0.8); NEUTROPHIL (%) 82.4 % (45-76); NEUTROPHIL COUNT 10.2 K/uL (1.8-6.4); PLATELET COUNT 288 K/uL (156-360); RBC DIS.WIDTH-CV 12.5 % (11.8-14.6); RED BLOOD COUNT 4.54 M/uL (3.80-5.20); WHITE BLOOD COUNT 12.3 K/uL (4.1-10.2)
[2016-08-21 08:56] LABS: ANION GAP 12 MEQ/L (2-14); CHLORIDE 93 MEQ/L (99-109); GFR ESTIMATE (CALCULATED) > 59 mL/min/; POTASSIUM 4.7 MEQ/L (3.7-5.4); SAMPLE HEMOLYSIS CHECK 0; SAMPLE ICTERIC CHECK 0; SAMPLE LIPEMIA CHECK 0; SODIUM 130 MEQ/L (136-147); UREA NITROGEN (BUN) 16 mg/dL (9-23)
[2016-08-21 08:57] LABS: GLUCOSE 108 mg/dL (70-99)
[2016-08-21 12:41] LABS: POINT-OF-CARE METER ID UU13113731
[2016-08-21 18:37] LABS: POINT-OF-CARE METER ID UU13113731
[2016-08-22] VITALS (19 sets, daily range): BP systolic 0–143; BP diastolic 0–74
[2016-08-22 00:31] LABS: POINT-OF-CARE METER ID UU14162636
[2016-08-22 05:30] LABS: POINT-OF-CARE METER ID UU14162636
[2016-08-22 08:48] LABS: ANION GAP 11 MEQ/L (2-14); CHLORIDE 98 MEQ/L (99-109); GFR ESTIMATE (CALCULATED) > 59 mL/min/; GLUCOSE 104 mg/dL (70-99); POTASSIUM 3.9 MEQ/L (3.7-5.4); SAMPLE HEMOLYSIS CHECK 0; SAMPLE ICTERIC CHECK 0; SAMPLE LIPEMIA CHECK 0; SODIUM 135 MEQ/L (136-147); UREA NITROGEN (BUN) 22 mg/dL (9-23)
[2016-08-22 09:25] LABS: MAGNESIUM 2.2 mg/dl (1.3-2.7)
[2016-08-22 12:34] LABS: POINT-OF-CARE METER ID UU14162636
[2016-08-22 14:21] LABS: BASE EXCESS 4.9 mEq/L (-3 to +3); BICARBONATE 30.4 mEq/L (22-26); CARBOXY HGB 2.3 % (0-5); METHEMOGLOBIN 1.8 % (0-1.5); PCO2 48 mm Hg (35-45); PO2 64 mm Hg (80-100); SITE LR; pH 7.41 (7.35-7.45)
[2016-08-22 14:22] LABS: COMMENTS - BLOOD GASES NEG A+C+; DEVICE NC; O2 FLOW 1 L/MIN; TOTAL RESP RATE 10 resp/min
[2016-08-22 17:52] LABS: POINT-OF-CARE METER ID UU14162636
[2016-08-23] VITALS (8 sets, daily range): BP systolic 101–165; BP diastolic 55–74
[2016-08-23 00:44] LABS: POINT-OF-CARE METER ID UU14162636
[2016-08-23 05:56] LABS: POINT-OF-CARE METER ID UU13113748; POINT-OF-CARE USER ID PHATLC
[2016-08-23 06:44] LABS: ANION GAP 8 MEQ/L (2-14); CHLORIDE 102 MEQ/L (99-109); GFR ESTIMATE (CALCULATED) > 59 mL/min/; GLUCOSE 89 mg/dL (70-99); POTASSIUM 4.4 MEQ/L (3.7-5.4); SAMPLE HEMOLYSIS CHECK 2; SAMPLE ICTERIC CHECK 0; SAMPLE LIPEMIA CHECK 0; SODIUM 138 MEQ/L (136-147); UREA NITROGEN (BUN) 24 mg/dL (9-23)
[2016-08-23 12:56] LABS: POINT-OF-CARE METER ID UU13113748
[2016-08-23 19:43] LABS: POINT-OF-CARE METER ID UU13113748
[2016-08-24] VITALS (9 sets, daily range): BP systolic 0–153; BP diastolic 0–72
[2016-08-24 00:46] LABS: POINT-OF-CARE METER ID UU13113748
[2016-08-24 05:57] LABS: CHLORIDE 102 MEQ/L (99-109); GFR ESTIMATE (CALCULATED) > 59 mL/min/; GLUCOSE 95 mg/dL (70-99); POTASSIUM 3.6 MEQ/L (3.7-5.4); SAMPLE HEMOLYSIS CHECK 0; SAMPLE ICTERIC CHECK 0; SAMPLE LIPEMIA CHECK 0; SODIUM 140 MEQ/L (136-147); UREA NITROGEN (BUN) 20 mg/dL (9-23)
[2016-08-24 05:58] LABS: ANION GAP 12 MEQ/L (2-14)
[2016-08-24 06:21] LABS: POINT-OF-CARE METER ID UU14162636
[2016-08-24 07:11] LABS: BASOPHIL COUNT 0.1 K/uL (0-0.1); EOSINOPHIL (%) 0.8 % (0-5); EOSINOPHIL COUNT 0.1 K/uL (0-0.3); HEMATOCRIT 35.6 % (36.0-46.0); IMMATURE GRANULOCYTE (%) 0.4 % (0.0-0.7); INSTRUMENT ABS NEUTROPHIL CT 8.3 K/uL; LYMPHOCYTE COUNT 1.4 K/uL (1.0-2.8); MCH 30.4 PG (29.0-34.0); MCHC 32.9 G/DL (30.0-36.0); MCV 92.5 FL (83-99); MEAN PLAT.VOLUME 9.3 uM^3 (9.5-12.4); MONOCYTE (%) 13.1 % (3-12); MONOCYTE COUNT 1.5 K/uL (0-0.8); NEUTROPHIL COUNT 8.3 K/uL (1.8-6.4); PLATELET COUNT 294 K/uL (156-360); RBC DIS.WIDTH-CV 12.9 % (11.8-14.6); RBC DIS.WIDTH-SD 43.3 % (39-53); RED BLOOD COUNT 3.85 M/uL (3.80-5.20); WHITE BLOOD COUNT 11.4 K/uL (4.1-10.2)
[2016-08-24 11:34] LABS: POINT-OF-CARE METER ID UU14174216
[2016-08-24 17:48] LABS: POINT-OF-CARE METER ID UU14174216
[2016-08-25 00:10] VITALS: BP 144/68
[2016-08-25 04:56] VITALS: BP 140/67
[2016-08-25 05:56] LABS: ANION GAP 9 MEQ/L (2-14); CHLORIDE 104 MEQ/L (99-109); GFR ESTIMATE (CALCULATED) > 59 mL/min/; GLUCOSE 91 mg/dL (70-99); POTASSIUM 3.7 MEQ/L (3.7-5.4); SAMPLE HEMOLYSIS CHECK 0; SAMPLE ICTERIC CHECK 0; SAMPLE LIPEMIA CHECK 0; SODIUM 139 MEQ/L (136-147); UREA NITROGEN (BUN) 17 mg/dL (9-23)
[2016-08-25 05:59] LABS: POINT-OF-CARE METER ID UU13113781
[2016-08-25 09:24] VITALS: BP 149/73
[2016-08-25 12:05] VITALS: BP 173/80
[2016-08-25 12:41] LABS: POINT-OF-CARE METER ID UU13113781
[2016-08-25 17:03] VITALS: BP 156/67
[2016-08-25 19:30] VITALS: BP 143/70
[2016-08-25 20:45] LABS: POINT-OF-CARE METER ID UU13113698
[2016-08-26 00:05] VITALS: BP 133/74
[2016-08-26 04:00] VITALS: BP 145/67
[2016-08-26 06:30] LABS: ANION GAP 9 MEQ/L (2-14); CHLORIDE 105 MEQ/L (99-109); GFR ESTIMATE (CALCULATED) > 59 mL/min/; GLUCOSE 91 mg/dL (70-99); MAGNESIUM 1.8 mg/dl (1.3-2.7); POTASSIUM 3.3 MEQ/L (3.7-5.4); SAMPLE HEMOLYSIS CHECK 0; SAMPLE ICTERIC CHECK 0; SAMPLE LIPEMIA CHECK 0; SODIUM 140 MEQ/L (136-147); UREA NITROGEN (BUN) 17 mg/dL (9-23)
[2016-08-26 08:52] VITALS: BP 164/72
[2016-08-26] MEDS ORDERED: LEVETIRACETAM500 MG PO (12:26)
[2016-08-26] MEDS ORDERED: OXCARBAZEPINE150 MG PO (12:26)
[2016-08-26] MEDS ORDERED: PHENYTOIN50 MG PO (12:26)
[2016-08-26 15:02] VITALS: BP 147/65
== END 2016-08-26 16:20 | DRG 100 ==
LOC: EME 22:44 → EDOF 08-13 02:54 → 4WEST 08-13 02:54 → 5SOUTH 08-13 02:54 → 4EAST 08-13 02:54 → 5SOUTH 08-13 04:00 → 4EAST 08-15 18:52 → 3EAST 08-18 21:42 → 4WEST 08-20 10:10 → 4EAST 08-24 08:44
PROVIDERS: Emergency Medicine; Hospitalist; Internal Medicine; Internal Medicine Critical Care Medicine; Internal Medicine Nephrology; Nurse Practitioner Adult Health; Obstetrics & Gynecology; Physician Assistant
PROC: 5A12012 Performance of Cardiac Output, Single, Manual (ICD-10-PCS; principal; 2016-08-20)
DX: G40.909 Epilepsy, unspecified, not intractable, without status epilepticus (principal); N39.0 Urinary tract infection, site not specified; I10 Essential (primary) hypertension; E11.9 Type 2 diabetes mellitus without complications; E66.01 Morbid (severe) obesity due to excess calories; Z86.73 Personal history of transient ischemic attack (TIA), and cerebral infarction without residual deficits; I69.351 Hemiplegia and hemiparesis following cerebral infarction affecting right dominant side; K21.9 Gastro-esophageal reflux disease without esophagitis; Z86.718 Personal history of other venous thrombosis and embolism; E78.5 Hyperlipidemia, unspecified; E03.9 Hypothyroidism, unspecified; E22.2 Syndrome of inappropriate secretion of antidiuretic hormone; M81.0 Age-related osteoporosis without current pathological fracture; E66.9 Obesity, unspecified; Z68.41 Body mass index [BMI] 40.0-44.9, adult; Z99.3 Dependence on wheelchair; J44.9 Chronic obstructive pulmonary disease, unspecified; M79.7 Fibromyalgia; F41.9 Anxiety disorder, unspecified; I95.9 Hypotension, unspecified; I46.9 Cardiac arrest, cause unspecified; Z66 Do not resuscitate
CPT/HCPCS: 36600; 70450; 70551; 71010; 71275; 73610; 80048; 80048 91; 80053; 80061; 80185; 81003; 82803; 82948; 83036; 83605; 83735; 83930; 83935; 84100; 84300; 84484; 85025; 85027; 85610; 85730; 87040; 87086; 87641; 92523 GN; 92610 GN; 92950; 93005; 93880; 94640; 94640 76; 94799; 95819; 95956; 97530 GP; 99202; 99281; 99285; J0461; J0696; J1165; J1265; J1644; J1815; J1885; J1953; J2060; J2405; J3475; J7030; J7040; J7050; Q0164

== ENCOUNTER 2016-09-16 10:21 | Inpatient (IN) | payer OTHER ==
[~2016-09-16] VITALS: Ht 162.6 cm; Wt 104.5 kg
[~2016-09-16 10:21] MED LIST changes: +ACETAMINOPHEN325 M1 PO; +ASPIRIN325 MG PO; +CALCIUM 600+D1 EACH PO; +DIAZEPAM2 MG PO; +FLOMAX0.4 MG PO; +OXCARBAZEPINE150 MG PO; +OXCARBAZEPINE600 MG PO; +PAROXETINE HCL10 MG PO; +PHENYTOIN50 MG PO; +SENNA PLUS TAB1 EACH PO; +TRAZODONE HCL50 MG PO; +TRILEPTAL150 MG PO; +VIMPAT100 MG PO
[2016-09-16 11:36] LABS: HEMATOCRIT 37.4 % (36.0-46.0); MCH 30.6 PG (29.0-34.0); MCV 90.1 FL (83-99); MEAN PLAT.VOLUME 8.6 uM^3 (9.5-12.4); PLATELET COUNT 291 K/uL (156-360); RBC DIS.WIDTH-CV 12.1 % (11.8-14.6); RBC DIS.WIDTH-SD 39.9 % (39-53); RED BLOOD COUNT 4.15 M/uL (3.80-5.20); WHITE BLOOD COUNT 6.8 K/uL (4.1-10.2)
[2016-09-16 11:42] LABS: CHLORIDE 94 mEq/L (99-109); POTASSIUM 4.7 mEq/L (3.7-5.4); SODIUM 127 mEq/L (136-147)
[2016-09-16 11:44] LABS: GLUCOSE 83 mg/dL (70-99)
[2016-09-16 11:45] LABS: ANION GAP 11 MEQ/L (2-14)
[2016-09-16 11:48] LABS: GFR ESTIMATE (CALCULATED) > 59 mL/min/
[2016-09-16 11:49] LABS: UREA NITROGEN (BUN) 9 mg/dL (9-23)
[2016-09-16 11:54] LABS: TROP-I INTERPRETATION NEGATIVE; TROPONIN-I < 0.01 ng/mL (0.0-0.30)
[2016-09-16 14:08] LABS: MAGNESIUM 1.8 mg/dl (1.3-2.7); SAMPLE HEMOLYSIS CHECK 0; SAMPLE ICTERIC CHECK 0; SAMPLE LIPEMIA CHECK 0
[2016-09-16] MEDS ORDERED: PHENYTOIN50 MG PO ×2 (15:01→15:37)
[2016-09-16] MEDS ORDERED: SODIUM CHLORIDE1 G1 PO (15:18)
[2016-09-16] MEDS ORDERED: DIAZEPAM2 MG PO (15:22)
[2016-09-16] MEDS ORDERED: DULCOLAX10 MG PR (15:25)
[2016-09-16 15:35] VITALS: BP 143/64
[2016-09-16] MEDS ORDERED: KEPPRA100 MG/1 M PO (16:10)
[2016-09-16] MEDS ORDERED: OXCARBAZEP300 MG/5 M PO (16:11)
[2016-09-16 19:25] VITALS: BP 115/56
[2016-09-16 20:38] LABS: ANION GAP 9 MEQ/L (2-14); CHLORIDE 91 MEQ/L (99-109); GFR ESTIMATE (CALCULATED) > 59 mL/min/; GLUCOSE 104 mg/dL (70-99); SAMPLE HEMOLYSIS CHECK 0; SAMPLE ICTERIC CHECK 0; SAMPLE LIPEMIA CHECK 0; SODIUM 123 MEQ/L (136-147); UREA NITROGEN (BUN) 8 mg/dL (9-23)
[2016-09-16 20:39] LABS: POTASSIUM 3.7 MEQ/L (3.7-5.4)
[2016-09-17 00:10] VITALS: BP 103/51
[2016-09-17 04:10] VITALS: BP 108/57
[2016-09-17 05:38] LABS: EOSINOPHIL (%) 2.8 % (0-5); EOSINOPHIL COUNT 0.2 K/uL (0-0.3); HEMATOCRIT 34.2 % (36.0-46.0); IMMATURE GRANULOCYTE (%) 0.2 % (0.0-0.7); INSTRUMENT ABS NEUTROPHIL CT 3.3 K/uL; LYMPHOCYTE COUNT 1.5 K/uL (1.0-2.8); MCH 30.2 PG (29.0-34.0); MCHC 33.6 G/DL (30.0-36.0); MCV 89.8 FL (83-99); MEAN PLAT.VOLUME 8.6 uM^3 (9.5-12.4); MONOCYTE (%) 12.7 % (3-12); MONOCYTE COUNT 0.7 K/uL (0-0.8); NEUTROPHIL COUNT 3.3 K/uL (1.8-6.4); PLATELET COUNT 237 K/uL (156-360); RBC DIS.WIDTH-CV 12.1 % (11.8-14.6); RBC DIS.WIDTH-SD 39.4 % (39-53); RED BLOOD COUNT 3.81 M/uL (3.80-5.20); WHITE BLOOD COUNT 5.7 K/uL (4.1-10.2)
[2016-09-17 06:00] LABS: ALKALINE PHOSPHATASE 99 IU/L (3-129); ANION GAP 8 MEQ/L (2-14); CHLORIDE 95 MEQ/L (99-109); GFR ESTIMATE (CALCULATED) > 59 mL/min/; GLUCOSE 83 mg/dL (70-99); POTASSIUM 4.2 MEQ/L (3.7-5.4); SAMPLE HEMOLYSIS CHECK 0; SAMPLE ICTERIC CHECK 0; SAMPLE LIPEMIA CHECK 0; SODIUM 124 MEQ/L (136-147); TOTAL BILIRUBIN 0.4 MG/DL (0.0-1.0); UREA NITROGEN (BUN) 8 mg/dL (9-23)
[2016-09-17 07:07] VITALS: BP 119/57
[2016-09-17 11:35] LABS: TROP-I INTERPRETATION NEGATIVE; TROPONIN-I < 0.01 ng/mL (0.0-0.30)
[2016-09-17 12:00] VITALS: BP 115/57
[2016-09-17 16:13] VITALS: BP 125/58
[2016-09-17 19:12] VITALS: BP 104/53
[2016-09-17 21:21] LABS: ANION GAP 8 MEQ/L (2-14); CHLORIDE 98 MEQ/L (99-109); GFR ESTIMATE (CALCULATED) > 59 mL/min/; POTASSIUM 4.1 MEQ/L (3.7-5.4); SAMPLE HEMOLYSIS CHECK 0; SAMPLE ICTERIC CHECK 0; SAMPLE LIPEMIA CHECK 0; UREA NITROGEN (BUN) 11 mg/dL (9-23)
[2016-09-17 21:25] LABS: GLUCOSE 108 mg/dL (70-99); SODIUM 131 MEQ/L (136-147)
[2016-09-18] VITALS (7 sets, daily range): BP systolic 105–129; BP diastolic 52–76
[2016-09-18 06:07] LABS: EOSINOPHIL (%) 2.3 % (0-5); EOSINOPHIL COUNT 0.2 K/uL (0-0.3); HEMATOCRIT 34.1 % (36.0-46.0); IMMATURE GRANULOCYTE (%) 0.1 % (0.0-0.7); INSTRUMENT ABS NEUTROPHIL CT 4.4 K/uL; LYMPHOCYTE COUNT 1.6 K/uL (1.0-2.8); MCH 30.2 PG (29.0-34.0); MCHC 33.4 G/DL (30.0-36.0); MCV 90.2 FL (83-99); MEAN PLAT.VOLUME 8.9 uM^3 (9.5-12.4); MONOCYTE (%) 11.9 % (3-12); MONOCYTE COUNT 0.8 K/uL (0-0.8); NEUTROPHIL (%) 62.7 % (45-76); NEUTROPHIL COUNT 4.4 K/uL (1.8-6.4); PLATELET COUNT 248 K/uL (156-360); RBC DIS.WIDTH-CV 12.5 % (11.8-14.6); RED BLOOD COUNT 3.78 M/uL (3.80-5.20)
[2016-09-18 06:38] LABS: ALKALINE PHOSPHATASE 91 IU/L (3-129); ANION GAP 10 MEQ/L (2-14); CHLORIDE 97 MEQ/L (99-109); GFR ESTIMATE (CALCULATED) > 59 mL/min/; GLUCOSE 91 mg/dL (70-99); POTASSIUM 4.3 MEQ/L (3.7-5.4); SAMPLE HEMOLYSIS CHECK 0; SAMPLE ICTERIC CHECK 0; SAMPLE LIPEMIA CHECK 0; SODIUM 131 MEQ/L (136-147); UREA NITROGEN (BUN) 11 mg/dL (9-23)
[2016-09-18 06:39] LABS: TOTAL BILIRUBIN 0.2 MG/DL (0.0-1.0)
[2016-09-19] VITALS (7 sets, daily range): BP systolic 96–144; BP diastolic 52–85
[2016-09-19 06:00] LABS: ALKALINE PHOSPHATASE 100 IU/L (3-129); ANION GAP 9 MEQ/L (2-14); CHLORIDE 104 MEQ/L (99-109); GFR ESTIMATE (CALCULATED) > 59 mL/min/; GLUCOSE 90 mg/dL (70-99); POTASSIUM 4.4 MEQ/L (3.7-5.4); SAMPLE HEMOLYSIS CHECK 1; SAMPLE ICTERIC CHECK 0; SAMPLE LIPEMIA CHECK 0; SODIUM 136 MEQ/L (136-147); UREA NITROGEN (BUN) 11 mg/dL (9-23)
[2016-09-19 06:06] LABS: TOTAL BILIRUBIN 0.3 MG/DL (0.0-1.0)
[2016-09-19 06:25] LABS: MEAN PLAT.VOLUME ND uM^3 (9.5-12.4); PLATELET COUNT ND K/uL (156-360)
[2016-09-19 07:03] LABS: BASOPHIL COUNT 0.1 K/uL (0-0.1); EOSINOPHIL (%) 2.6 % (0-5); EOSINOPHIL COUNT 0.3 K/uL (0-0.3); HEMATOCRIT 35.8 % (36.0-46.0); IMMATURE GRANULOCYTE (%) 0.4 % (0.0-0.7); INSTRUMENT ABS NEUTROPHIL CT 7.5 K/uL; LYMPHOCYTE COUNT 1.3 K/uL (1.0-2.8); MCH 30.7 PG (29.0-34.0); MCHC 33.2 G/DL (30.0-36.0); MCV 92.3 FL (83-99); MEAN PLAT.VOLUME 8.6 uM^3 (9.5-12.4); MONOCYTE (%) 9.9 % (3-12); NEUTROPHIL (%) 74.1 % (45-76); NEUTROPHIL COUNT 7.5 K/uL (1.8-6.4); PLATELET COUNT 257 K/uL (156-360); RBC DIS.WIDTH-CV 12.8 % (11.8-14.6); RBC DIS.WIDTH-SD 43.2 % (39-53); RED BLOOD COUNT 3.88 M/uL (3.80-5.20); WHITE BLOOD COUNT 10.1 K/uL (4.1-10.2)
[2016-09-20 04:43] VITALS: BP 105/53
[2016-09-20 07:13] VITALS: BP 116/57
[2016-09-20] MEDS ORDERED: SODIUM CHLORIDE1 G1 PO (11:08)
[2016-09-20] MEDS ORDERED: VIMPAT50 MG PO (11:11)
== END 2016-09-20 13:12 | DRG 644 ==
LOC: EME 10:21 → EDOF 13:13 → 4EAST 13:13 → ENRESERV 13:23 → 4EAST 15:01
PROVIDERS: Emergency Medicine; Hospitalist; Internal Medicine
DX: E22.2 Syndrome of inappropriate secretion of antidiuretic hormone (principal); F33.9 Major depressive disorder, recurrent, unspecified; I69.351 Hemiplegia and hemiparesis following cerebral infarction affecting right dominant side; J98.11 Atelectasis; G40.419 Other generalized epilepsy and epileptic syndromes, intractable, without status epilepticus; I10 Essential (primary) hypertension; E03.9 Hypothyroidism, unspecified; E78.5 Hyperlipidemia, unspecified; F41.9 Anxiety disorder, unspecified; G89.29 Other chronic pain; Z66 Do not resuscitate; J44.9 Chronic obstructive pulmonary disease, unspecified; R00.1 Bradycardia, unspecified; K21.9 Gastro-esophageal reflux disease without esophagitis; K59.00 Constipation, unspecified; M79.7 Fibromyalgia; M81.0 Age-related osteoporosis without current pathological fracture; E66.9 Obesity, unspecified; Z82.49 Family history of ischemic heart disease and other diseases of the circulatory system; Z86.718 Personal history of other venous thrombosis and embolism; Z87.891 Personal history of nicotine dependence; Z68.39 Body mass index [BMI] 39.0-39.9, adult; Z88.5 Allergy status to narcotic agent
CPT/HCPCS: 70450; 71010; 80048; 80048 91; 80053; 80185; 81003; 83735; 84484; 85025; 85025 91; 85027; 85610; 85730; 93005; 94640; 94640 76; 94760; 94799; 99202; 99281; 99285; C1769; C1887; J1644; J1940; J2060; J2250; J2405; J3010; J7030

== ENCOUNTER 2016-10-25 18:50 | Emergency (ER) | payer OTHER ==
[~2016-10-25] VITALS: Ht 162.6 cm; Wt 107.8 kg
[~2016-10-25 18:50] MED LIST changes: +KEPPRA100 MG/1 M PO; +OXCARBAZEP300 MG/5 M PO; +VIMPAT50 MG PO
[2016-10-25 20:14] LABS: INFLUENZA A VIRAL ANTIGEN NEGATIVE; INFLUENZA B VIRAL ANTIGEN NEGATIVE
[2016-10-25 20:34] LABS: EOSINOPHIL (%) 0.6 % (0-5); EOSINOPHIL COUNT 0.1 K/uL (0-0.3); HEMATOCRIT 40.5 % (36.0-46.0); IMMATURE GRANULOCYTE (%) 0.3 % (0.0-0.7); LYMPHOCYTE COUNT 1.4 K/uL (1.0-2.8); MCH 31.1 PG (29.0-34.0); MCHC 32.8 G/DL (30.0-36.0); MCV 94.6 FL (83-99); MEAN PLAT.VOLUME 9.1 uM^3 (9.5-12.4); MONOCYTE (%) 10.1 % (3-12); MONOCYTE COUNT 1.2 K/uL (0-0.8); NEUTROPHIL (%) 76.8 % (45-76); PLATELET COUNT 225 K/uL (156-360); RBC DIS.WIDTH-CV 13.3 % (11.8-14.6); RED BLOOD COUNT 4.28 M/uL (3.80-5.20); WHITE BLOOD COUNT 11.7 K/uL (4.1-10.2)
[2016-10-25 20:45] LABS: CHLORIDE 108 mEq/L (99-109); POTASSIUM 4.4 mEq/L (3.7-5.4); SODIUM 142 mEq/L (136-147)
[2016-10-25 20:47] LABS: GLUCOSE 119 mg/dL (70-99)
[2016-10-25 20:49] LABS: ANION GAP 8 MEQ/L (2-14)
[2016-10-25 20:51] LABS: GFR ESTIMATE (CALCULATED) > 59 mL/min/
[2016-10-25 20:52] LABS: UREA NITROGEN (BUN) 16 mg/dL (9-23)
[2016-10-25 21:25] LABS: ADD MIUA? YES; BILIRUBIN NEGATIVE; BLOOD NEGATIVE; COLOR YELLOW ((YELLOW)); GLUCOSE (STRIP) NEGATIVE; KETONES NEGATIVE; LEUKOCYTES LARGE; NITRITE POSITIVE; PROTEIN (STRIP) NEGATIVE; SPECIFIC GRAVITY 1.018 (1.000-1.030); UROBILINOGEN 0.2 MG/DL (0.2-1.0)
[2016-10-25 21:44] LABS: BACTERIA RARE /HPF; EPITHELIAL CELLS RARE /HPF; MUCUS TRACE /LPF; RED BLOOD CELLS 0-5 /HPF (0-5); UCUL ADDED? YES; WHITE BLOOD CELLS TNTC /HPF (0-5)
[2016-10-25] MEDS ORDERED: CEFDINIR300 MG PO (23:05)
[2016-10-26 03:00] VITALS: BP 119/82
== END 2016-10-26 03:20 ==
LOC: EME → EDBD 18:50 → EME 10-26 03:20
PROVIDERS: Emergency Medicine
DX: N39.0 Urinary tract infection, site not specified (principal); G40.909 Epilepsy, unspecified, not intractable, without status epilepticus; R05 Cough; M25.551 Pain in right hip; W05.0XXA Fall from non-moving wheelchair, initial encounter; Y92.129 Unspecified place in nursing home as the place of occurrence of the external cause; I10 Essential (primary) hypertension; Z86.73 Personal history of transient ischemic attack (TIA), and cerebral infarction without residual deficits; Z79.82 Long term (current) use of aspirin; Z87.891 Personal history of nicotine dependence
CPT/HCPCS: 70450; 71010; 73502; 80048; 81003; 85025; 87040; 87077; 87086; 87186; 87502; 93005; 99281; 99285; J0696

== ENCOUNTER 2016-11-07 17:45 | Inpatient (IN) | payer OTHER ==
[~2016-11-07] VITALS: Ht 162.6 cm; Wt 102.1 kg
[~2016-11-07 17:45] MED LIST changes: +CEFDINIR300 MG PO; -SENNA PLUS TAB1 EACH PO
[2016-11-07 18:33] LABS: HEMATOCRIT 35.7 % (36.0-46.0); MCH 30.5 PG (29.0-34.0); MCHC 32.5 G/DL (30.0-36.0); MCV 93.9 FL (83-99); MEAN PLAT.VOLUME 8.6 uM^3 (9.5-12.4); PLATELET COUNT 280 K/uL (156-360); RBC DIS.WIDTH-CV 13.2 % (11.8-14.6); RBC DIS.WIDTH-SD 45.2 % (39-53); WHITE BLOOD COUNT 12.1 K/uL (4.1-10.2)
[2016-11-07 18:40] LABS: INTER. NORMALIZED RATIO 1.2; PROTHROMBIN TIME 12.8 SEC (10.2-12.9)
[2016-11-07 18:41] LABS: CHLORIDE 108 mEq/L (99-109); POTASSIUM 4.5 mEq/L (3.7-5.4); SODIUM 136 mEq/L (136-147)
[2016-11-07 18:43] LABS: GLUCOSE 115 mg/dL (70-99)
[2016-11-07 18:44] LABS: ANION GAP 8 MEQ/L (2-14)
[2016-11-07 18:47] LABS: GFR ESTIMATE (CALCULATED) > 59 mL/min/
[2016-11-07 18:48] LABS: UREA NITROGEN (BUN) 18 mg/dL (9-23)
[2016-11-07] MEDS ORDERED: ILEVRO1.7 ML LEFT EYE (19:57)
[2016-11-07] MEDS ORDERED: ILEVRO1.7 ML RIGHT EYE (19:58)
[2016-11-07] MEDS ORDERED: OMNIPRED10 ML LEFT EYE (20:03)
[2016-11-07] MEDS ORDERED: SENNA PLUS TAB1 EACH PO (20:04)
[2016-11-07] MEDS ORDERED: ENDOCET 5-3251 EACH PO (20:20)
[2016-11-08 01:39] VITALS: BP 100/63
[2016-11-08 02:30] LABS: INTER. NORMALIZED RATIO 1.2; PROTHROMBIN TIME 13.6 SEC (10.2-12.9)
[2016-11-08 03:08] LABS: PTT ND SEC (25-37)
[2016-11-08 05:55] LABS: POINT-OF-CARE METER ID UU13113725
[2016-11-08 07:47] VITALS: BP 110/53
[2016-11-08 10:55] LABS: HEMATOCRIT 36.9 % (36.0-46.0); MCH 30.6 PG (29.0-34.0); MCV 95.8 FL (83-99); MEAN PLAT.VOLUME 9.3 uM^3 (9.5-12.4); PLATELET COUNT 311 K/uL (156-360); RBC DIS.WIDTH-CV 13.3 % (11.8-14.6); RBC DIS.WIDTH-SD 47.3 % (39-53); RED BLOOD COUNT 3.85 M/uL (3.80-5.20); WHITE BLOOD COUNT 11.8 K/uL (4.1-10.2)
[2016-11-08 12:14] LABS: POINT-OF-CARE METER ID UU13113725
[2016-11-08 12:18] LABS: ANION GAP 13 MEQ/L (2-14); CHLORIDE 104 MEQ/L (99-109); GFR ESTIMATE (CALCULATED) > 59 mL/min/; GLUCOSE 108 mg/dL (70-99); POTASSIUM 4.1 MEQ/L (3.7-5.4); SAMPLE HEMOLYSIS CHECK 0; SAMPLE ICTERIC CHECK 0; SAMPLE LIPEMIA CHECK 0; SODIUM 139 MEQ/L (136-147); UREA NITROGEN (BUN) 14 mg/dL (9-23)
[2016-11-08 13:03] VITALS: BP 122/57
[2016-11-08 15:12] VITALS: BP 122/78
== END 2016-11-08 14:00 | disposition short-term general hospital (02) | DRG 300 ==
LOC: EME 17:45 → EDOF 22:48 → ENRESERV 22:50 → 5EAST 11-08 01:08
PROVIDERS: Emergency Medicine; Hospitalist
DX: I82.421 Acute embolism and thrombosis of right iliac vein (principal); I82.4Z1 Acute embolism and thrombosis of unspecified deep veins of right distal lower extremity; S70.01XA Contusion of right hip, initial encounter; W05.0XXA Fall from non-moving wheelchair, initial encounter; M16.0 Bilateral primary osteoarthritis of hip; I95.9 Hypotension, unspecified; E66.01 Morbid (severe) obesity due to excess calories; Z68.38 Body mass index [BMI] 38.0-38.9, adult; J44.9 Chronic obstructive pulmonary disease, unspecified; I69.351 Hemiplegia and hemiparesis following cerebral infarction affecting right dominant side; G40.909 Epilepsy, unspecified, not intractable, without status epilepticus; I10 Essential (primary) hypertension; E11.9 Type 2 diabetes mellitus without complications; E03.9 Hypothyroidism, unspecified; K21.9 Gastro-esophageal reflux disease without esophagitis; Z66 Do not resuscitate; M81.0 Age-related osteoporosis without current pathological fracture; Z96.89 Presence of other specified functional implants; F32.9 Major depressive disorder, single episode, unspecified; F41.9 Anxiety disorder, unspecified; Z87.81 Personal history of (healed) traumatic fracture; Z86.74 Personal history of sudden cardiac arrest; Z87.440 Personal history of urinary (tract) infections; Z99.3 Dependence on wheelchair; Z82.49 Family history of ischemic heart disease and other diseases of the circulatory system; Z87.891 Personal history of nicotine dependence
CPT/HCPCS: 72192; 80048; 80185; 81003; 82948; 85027; 85610; 85730; 93971; 94640; 94799; 99281; 99285; J1815; J3010

== ENCOUNTER 2016-11-19 23:31 | Inpatient (IN) | payer OTHER ==
[~2016-11-19] VITALS: Ht 160 cm; Wt 105.2 kg
[~2016-11-19 23:31] MED LIST changes: +ILEVRO1.7 ML LEFT EYE; +ILEVRO1.7 ML RIGHT EYE; -KEPPRA100 MG/1 M PO; +OMNIPRED10 ML LEFT EYE; +SENNA PLUS TAB1 EACH PO
[2016-11-20 00:20] LABS: EOSINOPHIL (%) 0.6 % (0-5); EOSINOPHIL COUNT 0.1 K/uL (0-0.3); HEMATOCRIT 34.7 % (36.0-46.0); IMMATURE GRANULOCYTE (%) 0.5 % (0.0-0.7); IMMATURE GRANULOCYTE COUNT 0.1 K/uL; LYMPHOCYTE COUNT 0.7 K/uL (1.0-2.8); MCH 30.3 PG (29.0-34.0); MCHC 32.6 G/DL (30.0-36.0); MEAN PLAT.VOLUME 8.7 uM^3 (9.5-12.4); MONOCYTE (%) 7.7 % (3-12); NEUTROPHIL (%) 85.2 % (45-76); PLATELET COUNT 558 K/uL (156-360); RBC DIS.WIDTH-CV 13.9 % (11.8-14.6); RBC DIS.WIDTH-SD 46.9 % (39-53); RED BLOOD COUNT 3.73 M/uL (3.80-5.20); WHITE BLOOD COUNT 12.9 K/uL (4.1-10.2)
[2016-11-20 00:29] LABS: CHLORIDE 106 mEq/L (99-109); POTASSIUM 4.1 mEq/L (3.7-5.4); SODIUM 138 mEq/L (136-147)
[2016-11-20 00:32] LABS: ANION GAP 11 MEQ/L (2-14)
[2016-11-20 00:33] LABS: TOTAL BILIRUBIN 0.5 mg/dL (0.0-1.0)
[2016-11-20 00:34] LABS: ALKALINE PHOSPHATASE 126 IU/L (3-129)
[2016-11-20 00:35] LABS: GFR ESTIMATE (CALCULATED) > 59 mL/min/
[2016-11-20 00:36] LABS: INTER. NORMALIZED RATIO 1.5; PROTHROMBIN TIME 16.9 SEC (10.2-12.9); UREA NITROGEN (BUN) 9 mg/dL (9-23)
[2016-11-20 00:38] LABS: CREATINE KINASE 24 IU/L (1-294); TOTAL CK 24 IU/L (1-294)
[2016-11-20 00:42] LABS: PTT 27.7 SEC (25-37)
[2016-11-20 00:43] LABS: CK-MB 0.4 ng/mL (0.0-4.9)
[2016-11-20 00:48] LABS: GLUCOSE 142 mg/dL (70-99)
[2016-11-20 04:53] LABS: ADD MIUA? YES; BILIRUBIN NEGATIVE; BLOOD SMALL; COLOR AMBER ((YELLOW)); GLUCOSE (STRIP) NEGATIVE; KETONES NEGATIVE; LEUKOCYTES MODERATE; NITRITE NEGATIVE; PROTEIN (STRIP) 100; SPECIFIC GRAVITY 1.017 (1.000-1.030); UROBILINOGEN 0.2 MG/DL (0.2-1.0)
[2016-11-20 05:15] LABS: CRYSTALS PRESENT; UCUL ADDED? YES
[2016-11-20 05:16] LABS: AMORPHOUS URATES CRYSTALS 3+; URINE COMMENT FIELD OBSCURED BY
[2016-11-20] MEDS ORDERED: FAMOTIDINE20 MG PO (08:31)
[2016-11-20] MEDS ORDERED: POTASSIUM CHLO20 ME2 PO (08:33)
[2016-11-20] MEDS ORDERED: ADVAIR 100/501 DISK IH (08:35)
[2016-11-20] MEDS ORDERED: VIMPAT200 MG PO (08:40)
[2016-11-20] MEDS ORDERED: PANTOPRAZOLE SO40 MG PO (08:41)
[2016-11-20] MEDS ORDERED: XARELTO15 MG PO (08:43)
[2016-11-20] MEDS ORDERED: SODIUM CHLORIDE1 G1 PO (08:45)
[2016-11-20] MEDS ORDERED: OXYCODONE HCL5 MG PO (08:49)
[2016-11-20] MEDS ORDERED: XARELTO20 MG PO (08:57)
[2016-11-20 16:21] VITALS: BP 132/60
[2016-11-20 19:23] VITALS: BP 93/54
[2016-11-20 23:38] VITALS: BP 115/56
[2016-11-21 04:40] VITALS: BP 124/56
[2016-11-21 06:38] LABS: HEMATOCRIT 31.8 % (36.0-46.0); MCH 30.8 PG (29.0-34.0); MCHC 31.4 G/DL (30.0-36.0); MEAN PLAT.VOLUME 9.1 uM^3 (9.5-12.4); PLATELET COUNT 468 K/uL (156-360); RBC DIS.WIDTH-CV 13.9 % (11.8-14.6); RBC DIS.WIDTH-SD 49.6 % (39-53); RED BLOOD COUNT 3.25 M/uL (3.80-5.20); WHITE BLOOD COUNT 7.9 K/uL (4.1-10.2)
[2016-11-21 06:40] LABS: MCV 97.8 FL (83-99)
[2016-11-21 07:02] LABS: ANION GAP 9 MEQ/L (2-14); CHLORIDE 109 MEQ/L (99-109); GFR ESTIMATE (CALCULATED) > 59 mL/min/; POTASSIUM 4.3 MEQ/L (3.7-5.4); SAMPLE HEMOLYSIS CHECK 0; SAMPLE ICTERIC CHECK 0; SAMPLE LIPEMIA CHECK 0; SODIUM 142 MEQ/L (136-147); UREA NITROGEN (BUN) 9 mg/dL (9-23)
[2016-11-21 07:04] LABS: GLUCOSE 85 mg/dL (70-99)
[2016-11-21 07:32] VITALS: BP 124/58
[2016-11-21 16:34] VITALS: BP 121/57
[2016-11-21 19:40] VITALS: BP 113/59
[2016-11-22 00:18] VITALS: BP 130/60
[2016-11-22 03:14] VITALS: BP 114/58
[2016-11-22 05:55] LABS: MCH 30.3 PG (29.0-34.0); MCHC 31.3 G/DL (30.0-36.0); MEAN PLAT.VOLUME 9.2 uM^3 (9.5-12.4); PLATELET COUNT 490 K/uL (156-360); RBC DIS.WIDTH-SD 49.3 % (39-53); WHITE BLOOD COUNT 6.9 K/uL (4.1-10.2)
[2016-11-22 08:20] VITALS: BP 126/60
[2016-11-22 12:16] VITALS: BP 120/59
[2016-11-22 13:26] LABS: INTER. NORMALIZED RATIO 1.3; PROTHROMBIN TIME 14.3 SEC (10.2-12.9)
[2016-11-22 13:29] LABS: PTT 36.4 SEC (25-37)
[2016-11-22 16:32] VITALS: BP 123/60
[2016-11-22 19:44] VITALS: BP 103/52
[2016-11-23 00:26] VITALS: BP 117/61
[2016-11-23 03:54] VITALS: BP 100/59
[2016-11-23 05:50] LABS: INTER. NORMALIZED RATIO 1.4; PROTHROMBIN TIME 15.3 SEC (10.2-12.9)
[2016-11-23 08:01] LABS: HEMATOCRIT 31.1 % (36.0-46.0); MCH 31.8 PG (29.0-34.0); MCHC 32.5 G/DL (30.0-36.0); MCV 97.8 FL (83-99); MEAN PLAT.VOLUME 9.5 uM^3 (9.5-12.4); PLATELET COUNT 511 K/uL (156-360); RBC DIS.WIDTH-CV 14.1 % (11.8-14.6); RBC DIS.WIDTH-SD 50.9 % (39-53); RED BLOOD COUNT 3.18 M/uL (3.80-5.20); WHITE BLOOD COUNT 6.6 K/uL (4.1-10.2)
[2016-11-23 08:05] LABS: ANION GAP 9 MEQ/L (2-14); CHLORIDE 109 MEQ/L (99-109); POTASSIUM 4.4 MEQ/L (3.7-5.4); SAMPLE HEMOLYSIS CHECK 0; SAMPLE ICTERIC CHECK 0; SAMPLE LIPEMIA CHECK 0; SODIUM 143 MEQ/L (136-147)
[2016-11-23 08:10] VITALS: BP 126/64
[2016-11-23 08:11] LABS: GFR ESTIMATE (CALCULATED) > 59 mL/min/; GLUCOSE 87 mg/dL (70-99); UREA NITROGEN (BUN) 9 mg/dL (9-23)
[2016-11-23 12:16] VITALS: BP 117/68
[2016-11-23 16:12] VITALS: BP 114/62
[2016-11-24 00:07] VITALS: BP 129/61
[2016-11-24 03:30] VITALS: BP 129/58
[2016-11-24 05:17] LABS: HEMATOCRIT 32.9 % (36.0-46.0); MCH 32.7 PG (29.0-34.0); MCHC 33.7 G/DL (30.0-36.0); MCV 97.1 FL (83-99); MEAN PLAT.VOLUME 9.3 uM^3 (9.5-12.4); PLATELET COUNT 507 K/uL (156-360); RBC DIS.WIDTH-SD 49.4 % (39-53); RED BLOOD COUNT 3.39 M/uL (3.80-5.20); WHITE BLOOD COUNT 6.8 K/uL (4.1-10.2)
[2016-11-24 05:23] LABS: INTER. NORMALIZED RATIO 1.8; PROTHROMBIN TIME 19.8 SEC (10.2-12.9)
[2016-11-24 05:25] LABS: PTT 40.9 SEC (25-37)
[2016-11-24 06:21] LABS: ANION GAP 11 MEQ/L (2-14); CHLORIDE 104 MEQ/L (99-109); GFR ESTIMATE (CALCULATED) > 59 mL/min/; GLUCOSE 91 mg/dL (70-99); POTASSIUM 4.3 MEQ/L (3.7-5.4); SAMPLE HEMOLYSIS CHECK 0; SAMPLE ICTERIC CHECK 0; SAMPLE LIPEMIA CHECK 0; SODIUM 141 MEQ/L (136-147); UREA NITROGEN (BUN) 9 mg/dL (9-23)
[2016-11-24 08:11] VITALS: BP 113/55; BP 127/58
[2016-11-24 11:52] VITALS: BP 164/78
[2016-11-24] MEDS ORDERED: LIDOCAINE700 MG TP (11:58)
[2016-11-24] MEDS ORDERED: PHENYTOIN50 MG PO (11:58)
[2016-11-24] MEDS ORDERED: COUMADIN5 MG PO (11:58)
[2016-11-24] MEDS ORDERED: OXYCODONE HCL5 MG PO (11:58)
[2016-11-24] MEDS ORDERED: LOVENOX100 MG/1 M SC (11:58)
== END 2016-11-24 14:39 | DRG 300 ==
LOC: EME 23:31 → EDOF 11-20 08:43 → 3EAST 11-20 08:43 → ENRESERV 11-20 08:44 → CANRESERV 11-20 12:39 → ENRESERV 11-20 12:39 → 3EAST 11-20 16:10
PROVIDERS: Emergency Medicine; Internal Medicine; Physician Assistant
DX: I82.401 Acute embolism and thrombosis of unspecified deep veins of right lower extremity (principal); N39.0 Urinary tract infection, site not specified; K21.9 Gastro-esophageal reflux disease without esophagitis; I69.351 Hemiplegia and hemiparesis following cerebral infarction affecting right dominant side; F32.9 Major depressive disorder, single episode, unspecified; G40.909 Epilepsy, unspecified, not intractable, without status epilepticus; M81.0 Age-related osteoporosis without current pathological fracture; E22.2 Syndrome of inappropriate secretion of antidiuretic hormone; Z99.3 Dependence on wheelchair; E66.9 Obesity, unspecified; Z68.41 Body mass index [BMI] 40.0-44.9, adult; J44.9 Chronic obstructive pulmonary disease, unspecified; Z86.74 Personal history of sudden cardiac arrest; I10 Essential (primary) hypertension; E03.9 Hypothyroidism, unspecified; G89.29 Other chronic pain; Z79.01 Long term (current) use of anticoagulants; Z87.891 Personal history of nicotine dependence
CPT/HCPCS: 71010; 73060; 73502; 74174; 76705; 80048; 80053; 80185; 81003; 82550; 82553; 83605; 85025; 85027; 85610; 85730; 87040; 87077; 87086; 87186; 90686; 93005; 93971; 94640; 94640 76; 94760; 94799; 99202; 99281; 99285; J0696; J1650; J2405; J3010; J7030; J7040; J7050

== ENCOUNTER 2017-01-05 10:47 | Emergency (ER) | payer OTHER ==
[~2017-01-05] VITALS: Ht 165.1 cm; Wt 98.7 kg
[~2017-01-05 10:47] MED LIST changes: +ADVAIR 100/501 DISK IH; +COUMADIN5 MG PO; +FAMOTIDINE20 MG PO; +LIDOCAINE700 MG TP; +LOVENOX100 MG/1 M SC; +OXYCODONE HCL5 MG PO; +PANTOPRAZOLE SO40 MG PO; +POTASSIUM CHLO20 ME2 PO; +VIMPAT200 MG PO; +XARELTO15 MG PO; +XARELTO20 MG PO
[2017-01-05 11:14] LABS: POINT-OF-CARE METER ID UU13113747
[2017-01-05 12:20] LABS: BASOPHIL COUNT 0.1 K/uL (0-0.1); EOSINOPHIL (%) 2.5 % (0-5); EOSINOPHIL COUNT 0.2 K/uL (0-0.3); HEMATOCRIT 38.5 % (36.0-46.0); IMMATURE GRANULOCYTE (%) 0.3 % (0.0-0.7); INSTRUMENT ABS NEUTROPHIL CT 5.2 K/uL; LYMPHOCYTE COUNT 1.3 K/uL (1.0-2.8); MCH 31.3 PG (29.0-34.0); MCHC 32.2 G/DL (30.0-36.0); MCV 97.2 FL (83-99); MEAN PLAT.VOLUME 9.1 uM^3 (9.5-12.4); MONOCYTE (%) 9.2 % (3-12); MONOCYTE COUNT 0.7 K/uL (0-0.8); NEUTROPHIL (%) 70.2 % (45-76); NEUTROPHIL COUNT 5.2 K/uL (1.8-6.4); PLATELET COUNT 282 K/uL (156-360); RBC DIS.WIDTH-CV 13.1 % (11.8-14.6); RBC DIS.WIDTH-SD 47.2 % (39-53); RED BLOOD COUNT 3.96 M/uL (3.80-5.20); WHITE BLOOD COUNT 7.5 K/uL (4.1-10.2)
[2017-01-05 12:27] LABS: INTER. NORMALIZED RATIO 2.6; PROTHROMBIN TIME 29.9 SEC (10.2-12.9)
[2017-01-05 12:29] LABS: CHLORIDE 107 mEq/L (99-109); POTASSIUM 4.7 mEq/L (3.7-5.4); SODIUM 140 mEq/L (136-147)
[2017-01-05 12:30] LABS: GLUCOSE 100 mg/dL (70-99); PTT 37.1 SEC (25-37)
[2017-01-05 12:32] LABS: ANION GAP 9 MEQ/L (2-14)
[2017-01-05 12:34] LABS: GFR ESTIMATE (CALCULATED) > 59 mL/min/
[2017-01-05 12:35] LABS: UREA NITROGEN (BUN) 17 mg/dL (9-23)
[2017-01-05 12:40] LABS: TROP-I INTERPRETATION NEGATIVE; TROPONIN-I < 0.01 ng/mL (0.0-0.30)
[2017-01-05] MEDS ORDERED: ANTIVERT25 MG PO (14:32)
[2017-01-05 16:05] VITALS: BP 116/62
== END 2017-01-05 16:13 ==
LOC: EME 10:47
PROVIDERS: Emergency Medicine
DX: R42 Dizziness and giddiness (principal); I10 Essential (primary) hypertension; J44.9 Chronic obstructive pulmonary disease, unspecified; F41.9 Anxiety disorder, unspecified; F32.9 Major depressive disorder, single episode, unspecified; I69.351 Hemiplegia and hemiparesis following cerebral infarction affecting right dominant side; Z87.891 Personal history of nicotine dependence; Z99.3 Dependence on wheelchair
CPT/HCPCS: 70450; 71010; 80048 91; 82948; 84484; 85025 91; 85610; 85730; 93005; 99281; 99285